=== PATIENT | female | born 1965 | race Caucasian/White ===

== ENCOUNTER → 2017-07-30 17:51 | Outpatient (CLI) | payer OTHER, SELFPAY ==
--- NOTE | 2017-07-30 18:00 | MRI_ITS ---
MR Spine Cervical W/O Contrast INDICATION: Right shoulder pain following neck injury COMPARISON: None TECHNIQUE: Multiplanar multisequence MRI examination of the cervical spine without contrast FINDINGS: The cervical spine is straightened, likely positional. Height of the vertebral bodies is preserved. Bone marrow signal is normal. Positioning of the cerebellar tonsils is normal. The cervical cord is normal in course, caliber, and signal intensity. There is mild flattening of the cord at the C5-6 and C6-7 levels without evidence of signal change. C2-3 level and C3-4 level unremarkable. C4-5 level demonstrates left predominant uncovertebral joint hypertrophy with left neural foraminal stenosis. Spinal canal and right neuroforamen are patent. C5-6 level demonstrates degenerative disc disease with circumferential disc osteophyte formation and uncovertebral joint hypertrophy. Broad-based posterior disc protrusion is present and disc osteophytes are seen extending into the neuroforamina bilaterally. Findings result in moderate spinal canal stenosis and bilateral neuroforaminal stenosis, left worse than right. Residual AP diameter of the dural sac is 7 mm. The cord is mildly flattened. C6-7 level demonstrates degenerative disc disease with a focal left paracentral disc protrusion and bilateral uncovertebral joint hypertrophy. Findings result in mild spinal canal and bilateral neuroforaminal stenosis. Residual AP diameter of the dural sac is 8 mm. C7-T1 level is unremarkable. MRI/Spine Cervical (Routine) IMPRESSION: Left predominant facet arthritic changes with neuroforaminal narrowing at C4-5, C5-6, and C6-7. Degenerative disc disease at C5-6 and C6-7 with posterior disc protrusions and spinal canal narrowing as detailed above. at [id number] Reported and signed by: Gaby Elaine MD Electronically Signed: Gaby Elaine MD at 22:41 EST Tel , Service support ,
== END ==
PROVIDERS: Family Provider Family Medicine; PCP Family Medicine; Visit Provider Anesthesiology Pain Medicine
DX: S40.011A Contusion of right shoulder, initial encounter (principal); X58.XXXA Exposure to other specified factors, initial encounter
CPT/HCPCS: 72141

== ENCOUNTER 2017-11-27 09:00 | Outpatient (RCR) | payer OTHER, SELFPAY ==
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
--- NOTE | 2017-11-27 09:00 | DT_ITS ---
This patient was seen during an EMR downtime November 25, 2017 - December 02, 2017. This patient may have a combination of paper and electronic documentation or all paper documentation. All documentation is viewable within the e-chart portion of [facility] for each patient visit.
--- NOTE | 2017-12-02 21:15 | HP.PTDCSUM ---
HP - PT D/C Summary It has been my pleasure to treat LAURA ROMERO under orders from Tim Whaley MD, for the diagnosis of SPINAL STENOSIS OF CERVICAL REGION C5-6-7 for a total of 8 visit(s). Discharge Date: 12/02/17 Please see the following information for a summary of their discharge status. - Subjective Subjective: Symptosm are about the same TOLENTINO and symptoms affecct ADL'S and job demands and houswork tasks. - Pain Bilateral Neck Pain Intensity (Out of 10): 5 - Overall Improvement % Improvement: 40 - Objective Objective/Function: POSTURE: mild foward head round shoulders. CERVICAL ROM: mod loss all planes with pain. MMT: 4/5 except shoulders 4-/5. NEURO : inact reflexes C5-6-7 07/27. PALAPTION: tender oa /aa - Goals Goal 1:: Independant with HEP Goal Progress: Progressing Goal 2:: Independant with posture for ADL'S Goal Progress: Progressing Goal 3:: Patient to decrease cervical pain and occiputal pain by 50% or greater to improve function with ADL'S Goal Progress: Progressing Goal 4:: Patient to improve cervical ROM for function of recovery with min limiations Goal Progress: Progressing Goal 5:: Patient be able to perform ADL'S anfd housework tasks with min li mations with less pain Goal Progress: Progressing Goal 6:: Patient be d/c to prophalaxis Goal Progress: Progressing - Plan Plan: D/C TO RTD - D/C Information If there are questions or concerns regarding this patient's physical therapy, please feel free to call me at [phone]. Thank you for the referral of this patient. Sincerely, Elder Seo, PT,
== END 2017-11-27 19:00 | disposition home or self-care (01) ==
LOC: PT 09:00
PROVIDERS: Family Provider Family Medicine; PCP Family Medicine; Visit Provider Orthopaedic Surgery Orthopaedic Surgery of the Spine
DX: M48.02 Spinal stenosis, cervical region (principal)
CPT/HCPCS: 97012; 97035; 97110; 97140; 97162

== ENCOUNTER → 2018-02-04 10:33 | Outpatient (CLI) | payer OTHER, SELFPAY | PROVIDERS: Family Provider Family Medicine; PCP Family Medicine; Visit Provider Orthopaedic Surgery | DX: M25.512 Pain in left shoulder (principal) | CPT/HCPCS: 73030 ==

== ENCOUNTER → 2018-05-02 12:35 | Outpatient (CLI) | payer OTHER, SELFPAY ==
--- NOTE | 2018-05-02 12:36 | MRI_ITS ---
STUDY: MRI LEFT SHOULDER REASON FOR EXAM: Female, 52 years old. Left shoulder pain status post pulling injury 8 months ago TECHNIQUE: Standardized fat and water weighted pulse sequences were obtained in all 3 orthogonal planes. COMPARISON: X-ray February 04, 2018 FINDINGS: There is tendinosis of the supraspinatus with high-grade tear at the insertion, series 4 image . There is infraspinatus tendinosis with tendon thickening, but without a demonstrated tendon tear. Normal subscapularis tendon. Normal teres minor tendon. Normal supraspinatus muscle. Normal infraspinatus muscle. Normal subscapularis muscle. Normal teres minor muscle. Normal glenohumeral articulation. Normal humeral head and visualized proximal humerus. Normal biceps labral complex. Normal intracapsular long biceps tendon. Normal labrum. Normal capsulo- ligamentous complex. Normal rotator interval. There is mild osteoarthritis of the acromioclavicular articulation. There is a Type II morphology (curved) acromion, with a neutral orientation. There is minimal fluid distention of the subacromial bursa, consistent with mild subacromial-subdeltoid bursitis. Normal visualized coracohumeral and coracoacromial ligaments. Normal quadrilateral space. Normal axillary space. Normal deltoid muscle. Normal trapezius muscle. MRI/Upper Ext Joint Only(Routine) IMPRESSION: High-grade rotator cuff tear of the supraspinatus tendon. Electronically Signed: Dae Suarez MD at 10:51 EST , Service support ,
== END ==
PROVIDERS: Family Provider Family Medicine; PCP Family Medicine; Referring Provider Orthopaedic Surgery; Visit Provider Orthopaedic Surgery
DX: M75.102 Unspecified rotator cuff tear or rupture of left shoulder, not specified as traumatic (principal)
CPT/HCPCS: 73221

== ENCOUNTER 2018-06-04 11:18 | Day surgery (SDC) | payer OTHER, SELFPAY ==
--- NOTE | 2018-06-02 16:15 | EKG12_ITS ---
Test Reason : PRE-OP Blood Pressure : / mmHG Vent. Rate : 098 BPM Atrial Rate : 098 BPM P-R Int : 146 ms QRS Dur : 080 ms QT Int : 370 ms P-R-T Axes : 066 022 009 degrees QTc Int : 472 ms Normal sinus rhythm Normal ECG Confirmed by ALENA MCKENZIE, TONIE ([id number]), editorial project manager JEAN COULTER ([id number]) on 06/03/2018 8:47:40 AM Referred By: Mónica Garcia Confirmed By:TONIE CARVAJAL MD
[2018-06-02 17:06] LABS: Hematocrit 41.1 % (37-47); Hemoglobin 13.5 g/dl (12.0-15.0); Mean Corp Hgb Conc 32.8 g/gl (32-36); Mean Corpuscular Hgb 29.2 pg (27.0-32.0); Mean Platelet Vol. 9.8 fl (6.2-12.0); Platelet Count 379 K/mm3 (150-450); RBC Distribution Width CV 12.9 % (11.6-14.6); RBC Distribution Width SD 41.2 fl (35.1-43.9); Red Blood Count 4.62 M/mm3 (4.2-5.4); White Blood Count 10.3 K/mm3 (4.4-11.0)
[2018-06-02 17:07] LABS: Scan Indicated on CBC? Y/N NO
[2018-06-02 17:30] LABS: Anion Gap 8 (5-15); BUN 15 mg/dL (7-18); BUN/Creat Ratio 18.1 RATIO (10-20); Calcium,Total 8.8 mg/dL (8.5-10.1); Chloride 102 mmol/L (98-107); Creatinine, Serum 0.83 mg/dL (0.55-1.02); EST Glomerular Filtration Rate 77 mL/min (>60); Est Glom Filt Rate - Afr Amer 93 mL/min (>60); Glucose 122 mg/dL (74-106); Sodium Level 140 mmol/L (136-145); Thyroid Stim Hormone (TSH) 0.89 uIU/mL (0.358-3.74)
[2018-06-04] VITALS (9 sets, daily range): BP systolic 132–151; BP diastolic 68–96; PULSE 96–110; RESP 16–22; TEMP 36.2–37.4; O2SAT 93–97; BMI 50.2
--- NOTE | 2018-06-04 15:58 | DCINST_ITS ---
Discharge Diet: No Restrictions - may remove dressings in 4 days and apply bandaids to incision sites and may get incision wet at that time, follow up in 2 weeks, call with concerns, pendulums as tolerated, may flex elbow and use hand as tolerated Discharge Activity: May Not Drive May shower in (days): 1 Ice area for (Minutes): 20 - Every hour while awake. Weight Bearing Status: Weight bearing as tolerated Keep extremity elevated above heart level: Operative Extremity Call your doctor if your incision/area has: Continuous Slow Oozing, Sudden Increased Bleeding, Increased Pain/ Swelling, Increased Redness, Foul Smelling Discharge Call your doctor if you observe: Fever of 101 or Higher, Coldness, Increased Pain, Numbness or Tingling, Change in Color, Calf discomfort Allergies/Adverse Reactions: Allergies DANIEL Inhibitors Adverse Reaction (Verified 06/02/18 10:26) Other COUGH Medications to take at Discharge Citalopram [Celexa] 40 mg PO DAILY 04/27/14 Levothyroxine [Synthroid] 175 mcg PO DAILY 04/27/14 Spironolactone [Aldactone] 25 mg PO DAILY 04/27/14 tapentadol 50 mg tablet 50 mg PO Q6H PRN 04/22/18 Ibuprofen 200 mg PO PRN PRN 06/02/18 Duloxetine Hcl [Cymbalta] 30 mg PO DAILY 06/04/18 Hydrocodone Bitart/Apap 5-325 [[place] 5MG-325MG] 1 - 2 tablet PO Q6H PRN PRN 5 Days #40 tablet 06/04/18 Zolpidem Tartrate [Ambien (Generic)] 5 mg PO QHS PRN PRN #14 tablet 06/04/18 The following prescriptions were given: Hydrocodone Bitart/Apap 5-325 [[place] 5MG-325MG] 1 - 2 tablet PO Q6H PRN PRN 5 Days #40 tablet PRN Reason: Pain Zolpidem Tartrate [Ambien (Generic)] 5 mg PO QHS PRN PRN #14 tablet PRN Reason: Insomnia Orders to be completed after discharge: 12 Lead EKG [[facility]S] Time Frame: 06/02/18, Location: None Selected Basic Metabolic Profile (BMP) Time Frame: 06/02/18, Location: Laboratory CBC-Complete Blood Cnt No Diff Time Frame: 06/02/18, Location: Laboratory Thyroid Stim Hormone (TSH) Time Frame: 06/02/18, Location: Laboratory Primary Care Physician: Humera Rowland DO [Primary Care Provider] - Test Results: Test results from this visit will be discussed in further detail at your follow- up appointment, if applicable. Please Follow Up With: Mónica Garcia DO - [phone]
--- NOTE | 2018-06-04 15:58 | PCM.OPRPT ---
Report of Operation Date of Procedure: 06/04/18 Pre-Operative Diagnosis: left shoulder rotator cuff tear, biceps tendinosis, subacromial impingement syndrome Post-Operative Diagnosis: same Surgery/Procedure Performed:: sals, rc repair, biceps tenotomy, sad/acromioplasty supervisor inspecting: Gonzalez Franco Type of Anesthesia:: General Anesthesiologist: Abraham Quiñonez Estimated Blood Loss (mL): minimal Fluids Replaced: 500cc lr Description of Procedure: Preop note Patient is a 52-year-old female with continued left shoulder pain despite conservative treatment. Patient has pain and weakness with overhead movement. Patient had MRI that confirmed a high-grade tear biceps tendinosis and bursitis. Patient is failed conservative treatment and like to proceed with left shoulder arthroscopy repair is indicated. Risks benefits and alternatives surgery discussed with patient. Risks include but not limited to blood loss, blood clot, infection, nerve injury, loss of life and loss of limb. Patient is aware less patient like to proceed with left shoulder arthroscopy repair is again indicated. Operative note Patient seen and examined preoperative holding area. Left shoulder was marked. Patient brought to the operating room placed supine on the operating table. Sign, anesthesia, antibiotics are Mr. Left arm was prepped and draped in usual sterile fashion after beachchair positioning was maintained. [place] through beachchair positioning we did recheck her blood pressure which was stable throughout. All bony prominences well-padded SCDs placed on her bilateral lower extremity. We marked out our bony landmarks for portal placement timeout was performed. We insufflated the joint from the posterior aspect of the posterior portal. We got good return. We created a posterior portal with an 11 blade. We will able to visualize the glenohumeral joint. She has some undersurface tearing of the rotator cuff there are no loose bodies in the inferior recess her subscap was intact the biceps was torn off of its insertion at the labral junction as well as some red streaking in the interval not entered tubercle notch after an anterior portal was created and we able to bring the tendon into the joint to further evaluate it. We then truncated the biceps at its insertion and then used a shaver to debride back some unstable labral pieces as well as some unstable labral pieces that were more posterior as well. We then moved to the we did also debrided the undersurface of the rotator cuff and placed a 18-gauge spinal needle to martha where she had some fraying and some thinner tissue on the articular surface. We then moved to the bursal side. Created our lateral portal under direct visualization. We difficult time seeing as she has some of the bursa. We the combination of shaver and an ablator to resect back or thickened bursa. We able to visualize the cuff and a little bit more detail. She had a hook of her acromion which was gently debrided back and co-planed with a bur. We then able to again visualize the rotator cuff at the site of where her spinal needle was there was some almost more than 50% degenerative fraying coincide with about the 30% of the articular surface we completed the 20% remaining tear with a shaver which was gently debrided back as the tendon was quite friable. We then placed a fiber tape through the tear is us a very small tear and placed into a swivel lock laterally. We had good reduction and good footprint coverage at that point. We then irrigated the shoulder with copious muscle sterile saline and debrided any further bursa that we found especially in the posterior recess coagulated all bleeders. The shoulder was irrigated copious muscle sterile saline. Portals were closed with interrupted 4-0 nylon stitches and a sterile dressings and a sling was applied. Patient tolerated procedure well there are no comp occasions transferred to recovery room in stable condition. Postoperative note Pharmacy has prescription this We will give patient pictures in 2 weeks May remove sling to do pendulums only may move the elbow and hand as tolerated Call with increased pain numbness tingling or further his wrist issues arise Follow-up in 2 weeks with Heraclio WATT This note was generated with [employer] dictation software. It may contain incorrect words, spelling, and punctuation that were not noted in checking the note before signing.
[2018-06-04] MEDS: Cefazolin 2 GM in 0.9% Normal Saline 100 ML IV (16:11)
[2018-06-04] MEDS: Bupiv/Epi 0.5% Mpf 30 ML Vial (17:16)
[2018-06-04] MEDS: Mupirocin Ointment 22gm Tube 1 APPLIC (17:20)
[2018-06-04] MEDS: HYDROcodone Bitartrate/Apap 5/325 Tablet PO (20:00)
--- OUTSIDE RECORDS SUMMARY | 2018-07-21 14:11 | XMS RPT_ITS ---
:1965 Author Organization [facility] Address [address] [place] [address] Phone Care Team Providers Name Role Phone Judd MCKENZIE, Tim V Unavailable Reason for Visit Reason For Visit Description Start Date New - 1st visit with practice Preliminary reason for visit data, not yet signed by the author as of neck pain Preliminary reason for visit data, not yet signed by the author as of Chief Complaint Chief Complaint Description Start Date neck pain Preliminary chief complaint data, not yet signed by the author as of Instructions Instruction Description Start Date Patient advised to follow-up with Primary Care Physician for BMI management. Plan of Care Type Date Detail Appointment 09:00 AM Tim Whaley MD, [address], [place], [address], Pending order XR CERVICAL 2-3 VWS Medications Medication Instructions Start Stop Generic Name NDC Provider Date Date METHYLPREDNISOLONE 4 Use as 2018/ METHYLPREDNISOLONE 31127093547 Tim V MG TBPK directed on 10/16 10/22 Judd lozada MD NUCYNTA TABS 1 tablet twice TAPENTADOL HCL TABS 52599205075 Tim V daily 10/16 Judd MCKENZIE CELEXA TABS 1 tablet once CITALOPRAM [id number] Tim V daily 10/16 HYDROBROMIDE TABS Judd MCKENZIE ALDACTONE TABS 1 tablet once SPIRONOLACTONE TABS [id number] Tim V daily 10/16 Judd MCKENZIE SYNTHROID TABS 1 tablet once 2018/0 LEVOTHYROXINE [id number] Tim V daily 10/16 SODIUM TABS Judd MCKENZIE Conditions or Problems Problem Problem Onset Status Entry Provider Comment Standard Annotate Name Code Date Date Description Spinal 79605017 Active Tim V Spinal stenosis (SNOMED CT) / Judd MCKENZIE stenosis in of cervical cervical region region C5-6-7 Body mass 006454789 Active Tim V Body mass index (SNOMED CT) / Judd MCKENZIE index 40+ - (BMI) severely 45.0-49.9, obese adult Morbid 688640987 Active Tim V Body mass (severe) (SNOMED CT) / Judd MCKENZIE index 40+ - obesity severely due to obese excess calories Allergies, Adverse Reactions, Alerts Observed no known allergies at Social History Concept Description Observation Name Observation Value Units Start Date Alcohol use ETOH USE No Preliminary social history data, not yet signed by the author as of Details of drug DRUG USE No misuse behavior Preliminary social history data, not yet signed by the author as of Employment 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 Preliminary social history data, not yet signed by the author as of Never smoker SMOK STATUS never smoker Preliminary social history data, not yet signed by the author as of Vital Signs Date Name Value Unit Description BMI (Body Mass 49.60 kg/m2 Body Mass Index Index) [Ratio] Preliminary vital sign data, not yet signed by the author as of BP Diastolic 89 mm[Hg] blood pressure, diastolic Preliminary vital sign data, not yet signed by the author as of BP Systolic 129 mm[Hg] blood pressure, systolic Preliminary vital sign data, not yet signed by the author as of Heart Rate 80 /min pulse rate E&M Preliminary vital sign data, not yet signed by the author as of Height 65 [in_us] height E&M Preliminary vital sign data, not yet signed by the author as of Height 165 cm height in centimeters E&M Preliminary vital sign data, not yet signed by the author as of Weight Measured 297 [lb_av] weight E&M Preliminary vital sign data, not yet signed by the author as of Weight Measured 135 kg weight in kilograms E&M Preliminary vital sign data, not yet signed by the author as of Results Date Name Value Unit Range Flag Description Office Visit: New - 1st visit with practice, Rm: cast room MEDS REVIEW Done Documentation of current medications (procedure) Preliminary observation data, not yet signed by the author as of SMOK STATUS never smoker Tobacco smoking status NHIS Preliminary observation data, not yet signed by the author as of Preliminary observation data, not yet signed by the author as of MRI HX of the Cervical on MRI (magnetic 07/30/2017 at [facility]) history Hospital Preliminary observation data, not yet signed by the author as of XRAY HX of the Cervical on xray history 05/30/2016 at [facility] Preliminary observation data, not yet signed by the author as of Clinical Summary: [facility] account number Procedures Code Procedure Name Date Entry Date CPT-86813 Physical Therapy Medications Administered No information available. Immunizations No information available. Advance Directives There may be information available, but it has not been provided by the sender. Assessments There may be information available, but it has not been provided by the sender. Review of Systems There may be information available, but it has not been provided by the sender. Family History There may be information available, but it has not been provided by the sender. History of Past Illness There may be information available, but it has not been provided by the sender. History of Present Illness There may be information available, but it has not been provided by the sender.
--- OUTSIDE RECORDS SUMMARY | 2018-07-21 14:12 | XMS RPT_ITS ---
:1965 Author Organization OHIP Support Name Relationship Address Phone [employer] Unavailable [address] + [place] [address] NICK, AVEL Unavailable [address] + [place] [address] NICK, JULITA Unavailable [address] + [place] [address] [employer] Unavailable [address] + [place] [address] NICK, AVEL Unavailable [address] + [place] [address] NICK, JULITA Unavailable [address] + [place] [address] [employer] Unavailable [address] + [place] [address] NICK, AVEL Unavailable [address] + [place] [address] NICK, JULITA Unavailable [address] + [place] [address] [employer] Unavailable [address] + [place] [address] NICK, AVEL Unavailable [address] + [place] [address] NICK, JULITA Unavailable [address] + [place] [address] [employer] Unavailable [address] + [place] [address] NICK, AVEL Unavailable [address] + [place] [address] NICK, JULITA Unavailable [address] + [place] [address] [employer] Unavailable [address] + [place] [address] NICK, AVEL Unavailable [address] + [place] [address] NICK, JULITA Unavailable [address] + [place] [address] [employer] Unavailable [address] + [place] [address] NICK AVEL Unavailable [address] + [place] [address] [employer] Unavailable [address] + [place] [address] NICK AVEL Unavailable [address] + [place] [address] [employer] Unavailable [address] + [place] [address] NICK, AVEL Unavailable [address] + [place] [address] [employer] Unavailable [address] + [place] [address] NICK, AVEL Unavailable [address] + [place] [address] [employer] Unavailable [address] + [place] [address] NICK, AVEL Unavailable [address] + [place] [address] [employer] Unavailable [address] + [place] [address] NICK, AVEL Unavailable [address] + [place] [address] [employer] Unavailable [address] + [place] [address] NICK, AVEL Unavailable [address] + [place] [address] [employer] Unavailable [address] + [place] [address] NICK, AVEL Unavailable [address] [facility] + [place] [address] ANNETTE ROMERO Unavailable [address] [facility] + [place] [address] Care Team Providers Name Role Phone Mónica Garcia Attending Unavailable Chicorelli, Mónica Referring Unavailable Malys, Humera Primary Care Unavailable Abraham Quiñonez Consulting Unavailable Chicorelli, Mónica Consulting Unavailable Olegario Dai Attending Unavailable Chicorelli, Mónica Referring Unavailable BasaliByron Attending Unavailable Malys, Humera Primary Care Unavailable Chicorelli, Mónica Attending Unavailable Malys, Humera Referring Unavailable Chicorelli, Mónica Attending Unavailable Malys, Humera Primary Care Unavailable Gonzalez Franco Attending Unavailable Malys, Humera Referring Unavailable TALIWAL, TIM Attending Unavailable TALIWAL, TIM Referring Unavailable Malys, Humera Primary Care Unavailable Chicorelli, Mónica Attending Unavailable Malys, Humera Referring Unavailable Malys, Humera Primary Care Unavailable Chicorelli, Mónica Attending Unavailable Malys, Humera Primary Care Unavailable Chicorelli, Mónica Attending Unavailable Malys, Humera Referring Unavailable Chicorelli, Mónica Attending Unavailable Chicorelli, Mónica Referring Unavailable Malys, Humera Primary Care Unavailable Gonzalez Franco Attending Unavailable Malys, Humera Referring Unavailable Chicorelli, Mónica Attending Unavailable Chicorelli, Mónica Referring Unavailable Malys, Humera Primary Care Unavailable Abraham Quiñonez Consulting Unavailable JolliffSteffanie Attending Unavailable Malys, Humera Primary Care Unavailable PROBLEMS PROBLEMS DATE TYPE CONDITION / CODE ATTENDING STATUS SOURCE 06/04/2018 Unknown G89.18 - Other acute Chicorelli, Active [place] postprocedural pain [facility] / G89.18(ICD-10) Hospital Repository 06/06/2018 Unknown Z01.810 - Encounter Olegario Dai Active [place] for [facility]procedural [facility] examination / Repository Z01.810(ICD-10) 04/22/2018 Unknown M75.102 - Chicorelli, Active [place] Unspecified rotator [facility] cuff tear or rupture Hospital of left shoulder, Repository not specified as traumatic / M75.102(ICD-10) 02/04/2018 Unknown M25.512 - Pain in Chicorelli, Active [place] left shoulder / Mónica [facility] M25.512(ICD-10) Hospital Repository 12/12/2017 Unknown M48.02 - Spinal TALIWAL, TIM Active [place] stenosis, cervical Community region / Hospital M48.02(ICD-10) Repository 01/03/2017 Unknown CONTUSION OF Steffanie Pugh Active [place] UNSPECIFIED Community SHOULDER, SUBSEQUENT Hospital ENCOUNTER / Repository S40.019D(ICD-10) PROCEDURES PROCEDURES No Procedure Records FoundRESULTS RESULTS ORTHOPEDIC VISIT Observed: 07/14/2018 Status: F Source: [place] REPORT 11:36 AM [facility] REPOSITORY [facility] Sports [facility] [address] [place] [address] OFFICE VISIT Date of Service: 07/14/18 MR#: [id number] Acct: [id number] Name: LAURA ROMERO Rep #: [id number] : 1965 Provider: ALYSA Franco Age/Sex: 53/F Location[place] [facility] Status: Signed Intake Vital Signs07/14/18 Body Mass Index (BMI) 50.2 Intake Visit Reasons: LEFT SHOULDER Allergies DANIEL Inhibitors Adverse Reaction (Verified 06/02/18 10:26) Other Medications Citalopram [Celexa] 40 mg PO DAILY 04/27/14 [History Confirmed 06/02/18] Levothyroxine [Synthroid] 175 mcg PO DAILY 04/27/14 [History Confirmed 06/04/18] Spironolactone [Aldactone] 25 mg PO DAILY 04/27/14 [History Confirmed 06/02/18] tapentadol 50 mg tablet 50 mg PO Q6H PRN 04/22/18 [History Confirmed 06/02/18] Ibuprofen 200 mg PO PRN PRN 06/02/18 [History Confirmed 06/02/18] Duloxetine Hcl [Cymbalta] 30 mg PO DAILY 06/04/18 [History Confirmed 06/04/18] Zolpidem Tartrate [Ambien (Generic)] 5 mg PO QHS PRN PRN #14 tab 06/04/18 [Rx] tramadol 50 mg tablet 50 mg PO Q8H PRN #30 tab 07/11/18 [Rx] PFSH Social History Smoking Status: Former smoker HPI LEFT SHOULDER: Details: LAURA ROMERO is a 53 year old F here today for f/u 06/04/18 left shoulder RTC repair with tenotomy. She has been compliant with her sling and PT, though she does state she hates going. She is not doing an HEP because she said she was not instructed yet. She has full elbow rom without pain. Her complaints of pain is when she reaches out, an example given was reaching for the faucet, but she is using pain as her guide. Denies numbness, tingling or other associated symptoms. Ortho Exam Left Shoulder Skin/Wound: No ecchymosis, Yes healed Contralateral Normal: Yes Testing: No AROM-Forward Elevation 0-180, No AROM-External Rotation at side 0-60, No PROM-Forward Elevation 0-180, No PROM-External Rotation at side 0-60 SHOULDER: Today in the office patient has no evident abnormalities on inspection of the shoulder. Her incision sites have healed well without any erythema, discharge, inflammation or signs of infection. She has very minimal scarring at the site as well. Patient does not have any tenderness on palpation of the shoulder. Patient is obviously limited with her active range of motion. Passively I am able to get patient roughly 90 degrees of forward elevation and 90 degrees of abduction which is where she first begins to feel some discomfort and therefore stop. Assessment AND Plan Problems 1. Status post rotator cuff repair Z98.890 2. Orthopedic aftercare Z47.89 Plan At this time patient appears to be doing very well 6 weeks post left supraspinatus tendon repair. Her incision sites have healed well without any signs of inflammation or infection. She has no localized or generalized swelling of the shoulder. Patient is progressing through physical therapy primarily focused on passive range of motion with some minor active motion. She has started to slowly wean out of the brace and at 6 weeks we will continue to do so at this time. She is to continue to follow guidance of physical therapy especially with her home exercise program. She can continue to ice and take anti-inflammatories as needed for inflammation and pain. At this time patient is not able to return to work with her limited motion that she has. We discussed that we will recheck in 6 weeks which at 3 months are hoping to see almost complete full range of motion but will be lacking strength at that time. Patient is to notify and return to the office if she has any increased pains, increasing swelling, new injuries, or any other concerns or complaints. All questions were answered this time from patient. This note was generated with octoScope dictation software. It may contain incorrect words, spelling, and punctuation that were not noted in checking the note before signing. Coding Level of Care Code Global Post Op Diagnoses Status post rotator cuff repair Z98.890 Orthopedic aftercare Z47.89 07/14/18 1136 <Electronically signed by Gonzalez WATT> Date Gonzalez WATT Cosigner Signature: Date (if applicable) CC: INITAL EVALUATION (1) Observed: 06/30/2018 Status: F Source: [place] - PT 3:17 PM [facility] REPOSITORY [facility] Physical [facility] [address] [place] [address] [address] [place] [address] / REHABILITATION SERVICES INITIAL EVALUATION MR#: [id number] Acct: [id number] Name: LAURA ROMERO Rep #: [id number] : 1965 53 From: Avery Sylvester PT, ATC Referring Dr.: Mónica Garcia DO Status: REG RCR Insurance: [facility] [place] [id number] SELF PAY INSURANCE Patient's Visit Information LAURA ROMERO is a 53 year old F referred to Physical Therapy by Mónica Garcia DO with a diagnosis of L rot cuff repair. Date of Evaluation: 06/30/18 Physical Therapist: Avery Sylvester PT, ATC - Visit Plan Frequency: 2-3x /Week Duration: 6 Weeks Plan: Follow Rot cuff protocal. CP for pain - Subjective Findings: DOS: 06/04/18. Pt had a L shoulder rotator cuff repair and biceps tenodesis. Pt reports she injured her shoulder by trying to throw a bag that was heavy. Pt reports she immediately knew she injured her shoulder, but didn't want to go through the surgery again as she had R rot cuff repair 4 years ago. Pt reports this surgery was much more painful than her R shoulder. Pt reports she is glad she had the surgery done now. Pt reports the severe pain she had prior to the surgery is gone now. Intermittent sleep difficulty secondary to pain. Pt is R hand dominant. Pt works for the [employer]. 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 1/10 at rest, 6/10 at worst - Pain L shoulder Pain Intensity (Out of 10): 1 Pain Intensity Range: 6 - Objective Neuro: B UE sensation is WNL to light touch. R biceps reflex= 2/3. Observation: Incisions are fully healed with no signs of infection. ROM: L shoulder flex and abd= 90 degrees. R shoulder flex= 160, abd= 128 degrees. MMT: R shoulder 5/5 throughout. L shoulder NT - Goals Goal 1:: Decrease L shoulder pain x 50% to aid with sleep Goal Time Frame: 4-6 Weeks Goal 2:: Increase L shoulder flex and abd ROM x40 degrees to aid with overhead lifting Goal Time Frame: 4-6 Weeks Goal 3:: Increase L shoulder strength x 1 grade to aid with IADL's Goal Time Frame: 4-6 Weeks Goal 4:: I with HEP Goal Time Frame: 4-6 Weeks - Rehabilitation Potential Physical Therapy Diagnosis: L shoulder pain, weakness, and limited ROM secondary to L shoulder rot cuff repair Rehabilitation Potential: Good - Anticipated Interventions Patient/Client Instruction: Educate patient on: Condition, Plan of Care For the Purpose of:: To improve self management Therapeutic Exercise to Include: Strength training, Endurance training, Flexibilty training, Passive ROM, Active ROM, Scapular Strength/Stabilization For the Purpose of:: To decrease pain, To increase ROM, To improve muscle performance and motor function Cryotherapy (ice pack, ice massage): Yes For the Purpose of:: To decrease pain Thank you for the opportunity to evaluate your patient. For Medicare and Medicare HMO plans, please review the plan of care and approve it. It will need to be FAXED BACK to us at [phone] for Medicare purposes. For Medicare only, by signing this I certify the plan of care. Please let me know if there are questions or concerns regarding this plan of care. Physician Signature: Date: <Electronically signed by Avery Sylvester PT, ATC> 06/30/18 1517 CC: Mónica Garcia DO; Humera Rowland DO [facility] Signed ORTHOPEDIC VISIT Observed: 06/19/2018 Status: F Source: [place] REPORT 1:03 PM [facility] REPOSITORY [facility] Orthopa[facility]ics AND Sports Medicine [address] [place] [address] OFFICE VISIT Date of Service: 06/19/18 MR#: [id number] Acct: [id number] Name: LAURA ROMERO [place] Rep #: [id number] : 1965 Provider: Mónica Garcia DO Age/Sex: 52/F Location[place] [facility] Status: Signed Intake Vital Signs06/19/18 Body Mass Index (BMI) 50.2 Intake Visit Reasons: LEFT SHOULDER Is patient in pain?: Yes Pain scale (1-10): 3 Allergies DANIEL Inhibitors Adverse Reaction (Verified 06/02/18 10:26) Other Medications Citalopram [Celexa] 40 mg PO DAILY 04/27/14 [History Confirmed 06/02/18] Levothyroxine [Synthroid] 175 mcg PO DAILY 04/27/14 [History Confirmed 06/04/18] Spironolactone [Aldactone] 25 mg PO DAILY 04/27/14 [History Confirmed 06/02/18] tapentadol 50 mg tablet 50 mg PO Q6H PRN 04/22/18 [History Confirmed 06/02/18] Ibuprofen 200 mg PO PRN PRN 06/02/18 [History Confirmed 06/02/18] Duloxetine Hcl [Cymbalta] 30 mg PO DAILY 06/04/18 [History Confirmed 06/04/18] Zolpidem Tartrate [Ambien (Generic)] 5 mg PO QHS PRN PRN #14 tab 06/04/18 [Rx] tramadol 50 mg tablet 50 mg PO Q8H PRN #30 tab 06/19/18 [Rx Confirmed 06/19/18] PFSH Social History Smoking Status: Former smoker HPI LEFT SHOULDER: Details: LAURA ROMERO is a 52 year old F here today for f/u 06/04/18 left shoulder scope. She is compliant with her sling, removing when at rest in a chair and for showers. She is out of her pain medication but states she was using one at night and midday still. She has no signs of infection today and her incisions are healing well. Denies numbness, tingling or other associated symptoms. She has good rom at the elbow wrist and fingers. Ortho Exam Left Shoulder Skin/Wound: Yes healing SHOULDER: incision cdi, Assessment AND Plan 1. Orthopedic aftercare Z47.89 Plan PT rx given f/u 4 weeks with joshua wayt or sooner if issues arise tramadol escribed All questions answered. Patient in agreement of plan.Follow up in 4 weeks, or sooner if pain, swelling, numbness or associated symptoms, or concerns develop. Personally reviewed the surgical images if available, the surgery procedure and reviewed the post op care instructions. Monitor for signs of infection, redness, warmth, swelling in excess, drainage, opening of incision site/sites, and/or fever. Plan Detail Other Medications New: tramadol take 1 tab every 8 hours as needed for pain50 mg PO Q8H PRN 30 tabs 0RF pain , stop all other pain meds Coding Level of Care Code Global Post Op Diagnoses Orthopedic aftercare Z47.89 06/19/18 1303 <Electronically signed by Mónica Garcia DO> Date Mónica Xiongignrobert Signature: Date (if applicable) CC: OPERATIVE REPORT Observed: 06/04/2018 Status: F Source: [place] 5:31 PM [facility] REPOSITORY [facility] Medical Records Department [address] [place] [address] Operative Report 06/04/18 1558 MR#: [id number] Acct: [id number] Name: LAURA ROMERO Rep #: [id number] : 1965 52 From: Mónica Garcia DO PCP: Humera Rowland DO Status: REG SDC Y Location: [place] [address] Report of Operation Date of Procedure: 06/04/18 Pre-Operative Diagnosis: left shoulder rotator cuff tear, biceps tendinosis, subacromial impingement syndrome Post-Operative Diagnosis: same Surgery/Procedure Performed:: sals, rc repair, biceps tenotomy, sad/acromioplasty beef grinder: Gonzalez Franco Type of Anesthesia:: General Anesthesiologist: Abraham Quiñonez Estimated Blood Loss (mL): minimal Fluids Replaced: 500cc lr Description of Procedure: Preop note Patient is a 52-year-old female with continued left shoulder pain despite conservative treatment. Patient has pain and weakness with overhead movement. Patient had MRI that confirmed a high-grade tear biceps tendinosis and bursitis. Patient is failed conservative treatment and like to proceed with left shoulder arthroscopy repair is indicated. Risks benefits and alternatives surgery discussed with patient. Risks include but not limited to blood loss, blood clot, infection, nerve injury, loss of life and loss of limb. Patient is aware less patient like to proceed with left shoulder arthroscopy repair is again indicated. Operative note Patient seen and examined preoperative holding area. Left shoulder was marked. Patient brought to the operating room placed supine on the operating table. Sign, anesthesia, antibiotics are Mr. Left arm was prepped and draped in usual sterile fashion after beachchair positioning was maintained. Mcc through beachchair positioning we did recheck her blood pressure which was stable throughout. All bony prominences well-padded SCDs placed on her bilateral lower extremity. We marked out our bony landmarks for portal placement timeout was performed. We insufflated the joint from the posterior aspect of the posterior portal. We got good return. We created a posterior portal with an 11 blade. We will able to visualize the glenohumeral joint. She has some undersurface tearing of the rotator cuff there are no loose bodies in the inferior recess her subscap was intact the biceps was torn off of its insertion at the labral junction as well as some red streaking in the interval not entered tubercle notch after an anterior portal was created and we able to bring the tendon into the joint to further evaluate it. We then truncated the biceps at its insertion and then used a shaver to debride back some unstable labral pieces as well as some unstable labral pieces that were more posterior as well. We then moved to the we did also debrided the undersurface of the rotator cuff and placed a 18-gauge spinal needle to martha where she had some fraying and some thinner tissue on the articular surface. We then moved to the bursal side. Created our lateral portal under direct visualization. We difficult time seeing as she has some of the bursa. We the combination of shaver and an ablator to resect back or thickened bursa. We able to visualize the cuff and a little bit more detail. She had a hook of her acromion which was gently debrided back and co-planed with a bur. We then able to again visualize the rotator cuff at the site of where her spinal needle was there was some almost more than 50% degenerative fraying coincide with about the 30% of the articular surface we completed the 20% remaining tear with a shaver which was gently debrided back as the tendon was quite friable. We then placed a fiber tape through the tear is us a very small tear and placed into a swivel lock laterally. We had good reduction and good footprint coverage at that point. We then irrigated the shoulder with copious muscle sterile saline and debrided any further bursa that we found especially in the posterior recess coagulated all bleeders. The shoulder was irrigated copious muscle sterile saline. Portals were closed with interrupted 4-0 nylon stitches and a sterile dressings and a sling was applied. Patient tolerated procedure well there are no comp occasions transferred to recovery room in stable condition. Postoperative note Pharmacy has prescription this We will give patient pictures in 2 weeks May remove sling to do pendulums only may move the elbow and hand as tolerated Call with increased pain numbness tingling or further his wrist issues arise Follow-up in 2 weeks with Joshua WATT This note was generated with Bell[employer] software. It may contain incorrect words, spelling, and punctuation that were not noted in checking the note before signing. 06/04/18 1731 <Electronically signed by Mónica Garcia DO> Date Mónica Garcia DO CC: Mónica Garcia DO; Abraham Quiñonez MD; Humera Rowland DO Signed DISCHARGE INSTRUCTION Observed: 06/04/2018 Status: F Source: [place] 5:25 PM [facility] REPOSITORY [facility] Medical Records Department [address] [place] [address] Instructions for Home/Discharge Instructions 06/04/18 1557 MR#: [id number] Acct: [id number] Name: LAURA ROMERO Rep #: [id number] : 1965 52 From: Mónica Garcia DO PCP: Hmuera oRwland DO Status: REG SDC Discharge Diet: No Restrictions - may remove dressings in 4 days and apply bandaids to incision sites and may get incision wet at that time, follow up in 2 weeks, call with concerns, pendulums as tolerated, may flex elbow and use hand as tolerated Discharge Activity: May Not Drive May shower in (days): 1 Ice area for (Minutes): 20 - Every hour while awake. Weight Bearing Status: Weight bearing as tolerated Keep extremity elevated above heart level: Operative Extremity Call your doctor if your incision/area has: Continuous Slow Oozing, Sudden Increased Bleeding, Increased Pain/ Swelling, Increased Redness, Foul Smelling Discharge Call your doctor if you observe: Fever of 101 or Higher, Coldness, Increased Pain, Numbness or Tingling, Change in Color, Calf discomfort Allergies/Adverse Reactions: Allergies DANIEL Inhibitors Adverse Reaction (Verified 06/02/18 10:26) Other COUGH Medications to take at Discharge Citalopram [Celexa] 40 mg PO DAILY 04/27/14 Levothyroxine [Synthroid] 175 mcg PO DAILY 04/27/14 Spironolactone [Aldactone] 25 mg PO DAILY 04/27/14 tapentadol 50 mg tablet 50 mg PO Q6H PRN 04/22/18 Ibuprofen 200 mg PO PRN PRN 06/02/18 Duloxetine Hcl [Cymbalta] 30 mg PO DAILY 06/04/18 Hydrocodone Bitart/Apap 5-325 [Shattuck 5MG-325MG] 1 - 2 tablet PO Q6H PRN PRN 5 Days #40 tablet 06/04/18 Zolpidem Tartrate [Ambien (Generic)] 5 mg PO QHS PRN PRN #14 tablet 06/04/18 The following prescriptions were given: Hydrocodone Bitart/Apap 5-325 [Shattuck 5MG-325MG] 1 - 2 tablet PO Q6H PRN PRN 5 Days #40 tablet PRN Reason: Pain Zolpidem Tartrate [Ambien (Generic)] 5 mg PO QHS PRN PRN #14 tablet PRN Reason: Insomnia Orders to be completed after discharge: 12 Lead EKG [CVS] Time Frame: 06/02/18, Location: None Selected Basic Metabolic Profile (BMP) Time Frame: 06/02/18, Location: Laboratory CBC-Complete Blood Cnt No Diff Time Frame: 06/02/18, Location: Laboratory Thyroid Stim Hormone (TSH) Time Frame: 06/02/18, Location: Laboratory Primary Care Physician: Humera Rowland DO [Primary Care Provider] - Test Results: Test results from this visit will be discussed in further detail at your follow-up appointment, if applicable. Please Follow Up With: Mónica Garcia DO - [phone] 06/04/18 3115 <Electronically signed by Mónica Garcia DO> Date Mónica Garcia DO CC: Abraham Quiñonez MD; Humera Rowland DO 12 LEAD ELECTROCARDIOGRAM Observed: 06/03/2018 Status: F Source: [place] 8:47 AM [facility] REPOSITORY [facility] Cardiovascular Services [address] [place] [address] 12 Lead EKG 06/02/18 1624 MR#: [id number] Acct: [id number] Name: LAURA ROMERO Rep #: [id number] : 1965 52 From: Olegario Dai MD Attending Dr: Mónica Garcia DO Status: PRE SDC Ordering Dr: Mónica Garcia DO Date: 06/02/18 Location: [facility] [place] Sex: F C Admitted: Test Reason : PRE-OP Blood Pressure : / mmHG Vent. Rate : 098 BPM Atrial Rate : 098 BPM P-R Int : 146 ms QRS Dur : 080 ms QT Int : 370 ms P-R-T Axes : 066 022 009 degrees QTc Int : 472 ms Normal sinus rhythm Normal ECG Confirmed by ALENA MCKENZIE, OLEGARIO ([id number]), publications editor GABY COULTER ([id number]) on 06/03/2018 8:47:40 AM Referred By: Mónica Garcia Confirmed By:OLEGARIO DAI MD 06/03/18 0847 Date Olegario Dai MD CC: Mónica Garcia DO; Humera Rowland DO Signed CBC-COMPLETE BLOOD CNT Collected: 06/02/2018 Status: F Source: [place] NO DIFF 3:51 PM [facility] REPOSITORY TYPE CODE TESTS RESULT OUT OF RANGE REFERENCE UNITS LAB L100.1000 4.4-11.0 K/mm3 Normal WBC 10.3 LAB L100.1200 4.2-5.4 M/mm3 Normal RBC 4.62 LAB L100.1300 12.0-15.0 g/dl Normal HGB 13.5 LAB L100.1400 37-47 % Normal HCT 41.1 LAB L100.1500 81-99 fL Normal MCV 89.0 LAB L100.1600 27.0-32.0 pg Normal MCH 29.2 LAB L100.1700 32-36 g/gl Normal MCHC 32.8 LAB L100.1810 11.6-14.6 % Normal RDW CV 12.9 LAB L100.1820 35.1-43.9 fl Normal RDW SD 41.2 LAB L100.1900 150-450 K/mm3 Normal PLT 379 LAB L100.2000 6.2-12.0 fl Normal MPV 9.8 Performed By: #### L100.0500 #### [facility] [address] [place], [address] BASIC METABOLIC Collected: 06/02/2018 Status: F Source: [place] PROFILE (BMP) 3:51 PM [facility] REPOSITORY TYPE CODE TESTS RESULT OUT OF RANGE REFERENCE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 and job demands. Goal Time Frame: 4-6 Weeks Goal 5:: Patient be able to perform ADL'S and housework chores,job demands with min to no limitations above overhead Goal Time Frame: 4-6 Weeks - Rehabilitation Potential Physical Therapy Diagnosis: This patient shoulders right shoulder injury from contusion shoulder with pain and weakness which impairs ADL'S and function thus will benifit from skilled PT Rehabilitation Potential: Good - Anticipated Interventions Patient/Client Instruction: Educate patient on: Condition, Plan of Care For the Purpose of:: To decrease pain, To increase ROM, To improve ability to perform ADL's, To increase tolerance to activity/condition/position, To improve performance and independence with ADL's, To improve ability of physical actions for home/community/work/leisure, To improve health of tissue, To decrease soft tissue restriction, To improve self management, To improve ability to perform tasks related to life management Therapeutic Exercise to Include: Strength training, Postural training, Scapular Strength/Stabilization For the Purpose of:: To decrease pain, To increase ROM, To improve ability to perform ADL's, To increase tolerance to activity/condition/position, To improve performance and independence with ADL's, To improve ability of physical actions for home/community/work/leisure, To improve health of tissue, To increase flexibility/ROM, To improve ability to perform tasks related to life management IF ES: Yes Cryotherapy (ice pack, ice massage): Yes Thermo therapy (hot pack): Yes Ultrasound (thermal/non thermal): Yes For the Purpose of:: To decrease pain, To increase ROM, To improve nutrient delivery to tissue, To increase oxygenation perfusion, To improve health of tissue, To decrease soft tissue restriction Thank you for the opportunity to evaluate your patient. For Medicare and Medicare HMO plans, please review the plan of care and approve it. It will need to be FAXED BACK to us at [phone] for Medicare purposes. Please let me know if there are questions or concerns regarding this plan of care. Physician Signature: Date: <Electronically signed by Elder Seo PT, Cert. MDT, OCS> 05/09/16 6176 CC: Steffanie Pugh MD; Humera Rowland DO DORA Signed For Medicare only, by signing this I certify the plan of care. Physicians Signature Date SPINE CERVICAL Observed: 07/30/2017 Status: F Source: [place] (ROUTINE) 5:57 PM [facility] REPOSITORY [facility] Imaging Services [address] [place] [id number] Spine Cervical (Routine) MR#: [id number] Acct: [id number] Name: LAURA ROMERO Rep #: [id number] : 1965 F 52 From: Gaby Elaine MD PCP: Humera Rowland DO Status: REG CLI Study: Spine Cervical (Routine) Date of Exam: 07/30/17 Exam# [id number] Ordering Dr: Byron Rodriguez MD MR Spine Cervical W/O Contrast INDICATION: Right shoulder pain following neck injury COMPARISON: None TECHNIQUE: Multiplanar multisequence MRI examination of the cervical spine without contrast FINDINGS: The cervical spine is straightened, likely positional. Height of the vertebral bodies is preserved. Bone marrow signal is normal. Positioning of the cerebellar tonsils is normal. The cervical cord is normal in course, caliber, and signal intensity. There is mild flattening of the cord at the C5-6 and C6-7 levels without evidence of signal change. C2-3 level and C3-4 level unremarkable. C4-5 level demonstrates left predominant uncovertebral joint hypertrophy with left neural foraminal stenosis. Spinal canal and right neuroforamen are patent. C5-6 level demonstrates degenerative disc disease with circumferential disc osteophyte formation and uncovertebral joint hypertrophy. Broad-based posterior disc protrusion is present and disc osteophytes are seen extending into the neuroforamina bilaterally. Findings result in moderate spinal canal stenosis and bilateral neuroforaminal stenosis, left worse than right. Residual AP diameter of the dural sac is 7 mm. The cord is mildly flattened. C6-7 level demonstrates degenerative disc disease with a focal left paracentral disc protrusion and bilateral uncovertebral joint hypertrophy. Findings result in mild spinal canal and bilateral neuroforaminal stenosis. Residual AP diameter of the dural sac is 8 mm. C7-T1 level is unremarkable. MRI/Spine Cervical (Routine) IMPRESSION: Left predominant facet arthritic changes with neuroforaminal narrowing at C4-5, C5-6, and C6-7. Degenerative disc disease at C5-6 and C6-7 with posterior disc protrusions and spinal canal narrowing as detailed above. at [id number] Reported and signed by: Gaby Elaine MD Electronically Signed: Gaby Elaine MD at 22:41 EST Tel , Service support , CC: Byron Rodriguez MD; Humera Rowland DO Insight Leader: Signed ALLERGIES ALLERGIES DATE TYPE / CODE NAME / CODE REACTION SEVERITY SOURCE 06/02/2018 Drug DANIEL Other Unknown [facility] [facility] Allergy/4160 Inhibitors/F0 Hospital 04302(SNOMED [id number](RXNO Repository CT) RM) 05/12/2018 Drug No Known Unknown [facility] Allergy/4160 Allergies/F00 Hospital 56847(SNOMED 2748358(RXNOR Repository CT) M) 03/24/2016 Drug No Known [facility] Allergy/4160 Allergies/F00 Hospital 04106(SNOMED 6237105(RXNOR Repository CT) M) ENCOUNTERS ENCOUNTERS ADMIT/DISCHARGE ACCOUNT ADMITTING ENCOUNTER LOCATION SOURCE NUMBER CLASS 07/14/2018/ [id number] Ambulatory BMSBuilding:B [place] [facility] 8 [facility] Repository 07/09/2018 [id number] [place] [facility] ing:PT Repository 06/19/2018/ [id number] Ambulatory BMSBuilding:B [place] 8 5 [facility] Repository 06/04/2018 [id number] Ambulatory BMSBuilding:[place] 5 [facility] Repository 06/04/2018/ [id number] [place] [address] [facility] ing:SDCRoom: Repository AC19 06/02/2018 [id number] Ambulatory BMSBuilding:W [place] 1 [facility] Repository 05/12/2018/ [id number] Ambulatory BMSBuilding:B [place] 8 1 [facility] Repository 05/02/2018 [id number] [place] [facility] ing:MRI Repository 04/22/2018/ [id number] Ambulatory BMSBuilding:B [place] 8 5 [facility] Repository 02/04/2018 [id number] [place] [facility] ing:HPRAD Repository 02/04/2018/ [id number] Ambulatory BMSBuilding:B [place] 8 5 [facility] Repository 11/27/2017/ [id number] Ambulatory [place] [address] [facility] ing:PT Repository 07/30/2017 [id number] [place] 1 [facility] Hospital ing:MRI Repository 07/26/2016/ [id number] Ambulatory [place] 7 5 [facility] Hospital ing:PT Repository PAYERS PAYERS ENCOUNTER GUARANTOR PAYER SUBSCRIBER SOURCE 07/14/2018 [facility] Insurance:UMR AVEL Wadsworth [place] [id number] [id number] WIRTHDOB: [facility] Number: [id number], [place] [id number] Repository 264[address]Ufu: (207) Date:8514-99-50BT [phone] (HP) [address] [place] [address]OF: 07/14/2018 Secondary NOT GIVENUNK [place] Insurance:SELF PAY [facility] Number: Effective Repository Date:2018-07-11 07/09/2018 AVEL [place] Primary Insurance:UMR AVEL W[place] [id number] [id number] WIRTHDOB: Community [facility] Number: [id number], [place] [id number] Repository [address]Srw: ([phone]) Date:7764-76-05HC [phone] () [address] [place] [address]ZW: 07/09/2018 Secondary NOT GIVENUNK [place] Insurance:SELF PAY [facility] Number: Effective Repository Date:2018-06-19 06/19/2018 AVEL W[place] Primary Insurance:UMR AVEL Wadsworth [place] [id number] [id number] WIRTHDOB: Community [facility] Number: [id number], [place] [id number] Repository [address]Ogl: ([phone]) Date:2510-96-01LG [phone] () [address] [place] [address]KC: 06/19/2018 Secondary NOT GIVENUNK [place] Insurance:SELF PAY [facility] Number: Effective Repository Date:2018-06-18 06/04/2018 AVEL Wadsworth Primary Insurance:UMR AVEL Wadsworth [place] [id number] [id number] WIRTHDOB: Community [facility] Number: [id number], [place] [id number] Repository [address]Rsd: ([phone]) Date:9893-77-66MO [phone] (HP) [address] [place] [address]LD: 06/04/2018 Secondary NOT GIVENUNK [place] Insurance:SELF PAY [facility] Number: Effective Repository Date:2018-06-04 06/04/2018 AVEL W[place]sworth Primary Insurance:UMR AVEL Wadsworth [place] [id number] [id number] WIRTHDOB: [facility] GRUPO Number: [id number], [place] [id number] Repository [address]Lnh: ([phone]) Date:3487-55-44BG [phone] () [address] [place] [address]WP: 06/04/2018 Secondary NOT GIVENUNK [place] Insurance:SELF PAY [facility] Number: Effective Repository Date:2018-05-21 06/02/2018 AVEL W[place] Primary Insurance:UMR AVEL Wadsworth [place] [id number] [id number] [facility] Number: [id number], [place] [id number] Repository [address]Czm: ([phone]) Date:8085-15-72ZW [phone] () [address] [place] [address]RP: 06/02/2018 Secondary NOT GIVENUNK [place] Insurance:SELF PAY [facility] Number: Effective Repository Date:2018-06-02 05/12/2018 AVEL Wadsworth Primary Insurance:UMR AVEL Wadsworth [place] [id number] [id number] [facility] Number: [id number], [place] [id number] Repository [address]Hqs: ([phone]) Date:9243-39-62QD [phone] () [address] [place] [address]EJ: 05/12/2018 Secondary NOT GIVENUNK [place] Insurance:SELF PAY [facility] Number: Effective Repository Date:2018-05-12 05/02/2018 AEVL [place] Primary Insurance:UMR AVEL Wadsworth [place] [id number] [id number] WIRTHDOB: [facility] GRUPO Number: [id number], [place] [id number] Repository [address]Vhg: (330) Date:9587-08-84HF [phone] (HP) [address] [place] [address]JU: 05/02/2018 Secondary NOT GIVENUNK [place] Insurance:SELF PAY [facility] Number: Effective Repository Date:2018-04-25 04/22/2018 AVEL Wadsworth Primary Insurance:UMR AVEL Wadsworth [place] [id number] [id number] WIRTHDOB: Community [employer] Number: [id number], [place] [id number] Repository 16[address]Sbl: ([phone]) Date:0481-58-98DG [phone] (HP) [address] [place] [address]JD: 04/22/2018 Secondary NOT GIVENUNK [place] Insurance:SELF PAY [facility] Number: Effective Repository Date:2018-04-22 02/04/2018 AVEL Wadsworth Primary Insurance:UMR AVEL Wad[place] [id number] [id number] WIRTHDOB: Community [facility] Number: [id number], [place] [id number] Repository [address]Uvv: ([phone]) Date:2855-43-34QQ [phone] (HP) [address] [place] [address]UB: 02/04/2018 Secondary NOT GIVENUNK [place] Insurance:SELF PAY [facility] Number: Effective Repository Date:2018-02-04 02/04/2018 AVEL Wadsworth Primary Insurance:UMR AVEL Wadsworth [place] [id number] [id number] WIRTHDOB: Community [facility] Number: [id number], [place] [id number] Repository [address]Wmk: (330) Date:6263-58-60UE [phone] (HP) [address] [place] [address]HC: 02/04/2018 Secondary NOT GIVENUNK [place] Insurance:SELF PAY [facility] Number: Effective Repository Date:2018-02-04 11/27/2017 AVEL Wadsworth Primary Insurance:UMR AVEL Ananth [place] [id number] [id number] WIRTHDOB: [facility] Number: [id number], [place] [id number] Repository [address]Wzt: 330) Date:5772-94-69CH [phone] () [address] [place] [address]ZB: 11/27/2017 Secondary NOT GIVENUNK [place] Insurance:SELF PAY [facility] Number: Effective Repository Date:2017-10-17 07/30/2017 Avel W[place] Primary LAURA A [place] [id number] Insurance:SELF INS WIRTHDOB: [facility] [id number], [place] Number: Repository [address]Fkb: [phone] [id number] [phone] (HP) Date:4494-99-25TL [address] [place] [address]FX: 07/30/2017 Secondary NOT GIVENUNK [place] Insurance:SELF PAY [facility] Number: Effective Repository Date:2017-07-25 07/26/2016 AVEL Wadsworth Primary LAUAR A [place] [id number] Insurance:SELF INS WIRTHDOB: [facility] [id number] Number: Repository [address]Xrm: (054) [id number] [phone] (HP) Date:[address] [place] [address]CD: 07/26/2016 Secondary AVEL Wadsworth [place] Insurance:UMR RUY WIRTHDOB: [facility] [address]Qwjnpu Number: [id number] Hospital [id number] Repository Date:3844-49-32RC [address] [place] [phone]:
== END 2018-06-04 20:49 | disposition home or self-care (01) ==
LOC: SDC 11:20 → AC 11:28
PROVIDERS: Family Provider Family Medicine; PCP Family Medicine; Referring Provider Orthopaedic Surgery; Visit Provider Orthopaedic Surgery
PROC: (CPT 29827; principal; 2018-06-04 12:30)
DX: M75.102 Unspecified rotator cuff tear or rupture of left shoulder, not specified as traumatic (principal); F41.9 Anxiety disorder, unspecified; E07.9 Disorder of thyroid, unspecified; Z79.899 Other long term (current) drug therapy; I10 Essential (primary) hypertension; Z87.891 Personal history of nicotine dependence; M75.42 Impingement syndrome of left shoulder
CPT/HCPCS: 29826; 29827; 29828; 36415; 80048; 84443; 85027; 93005; C1713; J7120; J2405

== ENCOUNTER 2018-08-11 11:30 | Outpatient (RCR) | payer OTHER, SELFPAY ==
[2018-06-19 10:10] VITALS: BMI 50.2
--- NOTE | 2018-06-30 15:14 | HP.PTEVAL ---
Patient's Visit Information LAURA ROMERO is a 53 year old F referred to Physical Therapy by Mónica Garcia DO with a diagnosis of L rot cuff repair. Date of Evaluation: 06/30/18 Physical Therapist: Avery Sylvester PT, ATC - Visit Plan Frequency: 2-3x /Week Duration: 6 Weeks Plan: Follow Rot cuff protocal. CP for pain - Subjective Findings: DOS: 06/04/18. Pt had a L shoulder rotator cuff repair and biceps tenodesis. Pt reports she injured her shoulder by trying to throw a bag that was heavy. Pt reports she immediately knew she injured her shoulder, but didn't want to go through the surgery again as she had R rot cuff repair 4 years ago. Pt reports this surgery was much more painful than her R shoulder. Pt reports she is glad she had the surgery done now. Pt reports the severe pain she had prior to the surgery is gone now. Intermittent sleep difficulty secondary to pain. Pt is R hand dominant. Pt works for the [employer]. 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 1/10 at rest, 6/10 at worst - Pain L shoulder Pain Intensity (Out of 10): 1 Pain Intensity Range: 6 - Objective Neuro: B UE sensation is WNL to light touch. R biceps reflex= 2/3. Observation: Incisions are fully healed with no signs of infection. ROM: L shoulder flex and abd= 90 degrees. R shoulder flex= 160, abd= 128 degrees. MMT: R shoulder 5/5 throughout. L shoulder NT - Goals Goal 1:: Decrease L shoulder pain x 50% to aid with sleep Goal Time Frame: 4-6 Weeks Goal 2:: Increase L shoulder flex and abd ROM x40 degrees to aid with overhead lifting Goal Time Frame: 4-6 Weeks Goal 3:: Increase L shoulder strength x 1 grade to aid with IADL's Goal Time Frame: 4-6 Weeks Goal 4:: I with HEP Goal Time Frame: 4-6 Weeks - Rehabilitation Potential Physical Therapy Diagnosis: L shoulder pain, weakness, and limited ROM secondary to L shoulder rot cuff repair Rehabilitation Potential: Good - Anticipated Interventions Patient/Client Instruction: Educate patient on: Condition, Plan of Care For the Purpose of:: To improve self management Therapeutic Exercise to Include: Strength training, Endurance training, Flexibilty training, Passive ROM, Active ROM, Scapular Strength/Stabilization For the Purpose of:: To decrease pain, To increase ROM, To improve muscle performance and motor function Cryotherapy (ice pack, ice massage): Yes For the Purpose of:: To decrease pain Thank you for the opportunity to evaluate your patient. For Medicare and Medicare HMO plans, please review the plan of care and approve it. It will need to be FAXED BACK to us at [phone] for Medicare purposes. For Medicare only, by signing this I certify the plan of care. Please let me know if there are questions or concerns regarding this plan of care. Physician Signature: Date:
--- NOTE | 2018-06-30 15:17 | HP.PTEVAL_ITS ---
Patient's Visit Information LARUA ROMERO is a 53 year old F referred to Physical Therapy by Mónica Garcia DO with a diagnosis of L rot cuff repair. Date of Evaluation: 06/30/18 Physical Therapist: Avery Sylvester PT, ATC - Visit Plan Frequency: 2-3x /Week Duration: 6 Weeks Plan: Follow Rot cuff protocal. CP for pain - Subjective Findings: DOS: 06/04/18. Pt had a L shoulder rotator cuff repair and biceps tenodesis. Pt reports she injured her shoulder by trying to throw a bag that was heavy. Pt reports she immediately knew she injured her shoulder, but didn't want to go through the surgery again as she had R rot cuff repair 4 years ago. Pt reports this surgery was much more painful than her R shoulder. Pt reports she is glad she had the surgery done now. Pt reports the severe pain she had prior to the surgery is gone now. Intermittent sleep difficulty secondary to pain. Pt is R hand dominant. Pt works for the [employer]. 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 1/10 at rest, 6/10 at worst - Pain L shoulder Pain Intensity (Out of 10): 1 Pain Intensity Range: 6 - Objective Neuro: B UE sensation is WNL to light touch. R biceps reflex= 2/3. Observation: Incisions are fully healed with no signs of infection. ROM: L shoulder flex and abd= 90 degrees. R shoulder flex= 160, abd= 128 degrees. MMT: R shoulder 5/5 throughout. L shoulder NT - Goals Goal 1:: Decrease L shoulder pain x 50% to aid with sleep Goal Time Frame: 4-6 Weeks Goal 2:: Increase L shoulder flex and abd ROM x40 degrees to aid with overhead lifting Goal Time Frame: 4-6 Weeks Goal 3:: Increase L shoulder strength x 1 grade to aid with IADL's Goal Time Frame: 4-6 Weeks Goal 4:: I with HEP Goal Time Frame: 4-6 Weeks - Rehabilitation Potential Physical Therapy Diagnosis: L shoulder pain, weakness, and limited ROM secondary to L shoulder rot cuff repair Rehabilitation Potential: Good - Anticipated Interventions Patient/Client Instruction: Educate patient on: Condition, Plan of Care For the Purpose of:: To improve self management Therapeutic Exercise to Include: Strength training, Endurance training, Flexi bilty training, Passive ROM, Active ROM, Scapular Strength/Stabilization For the Purpose of:: To decrease pain, To increase ROM, To improve muscle performance and motor function Cryotherapy (ice pack, ice massage): Yes For the Purpose of:: To decrease pain Thank you for the opportunity to evaluate your patient. For Medicare and Medicare HMO plans, please review the plan of care and approve it. It will need to be FAXED BACK to us at [phone] for Medicare purposes. For Medicare only, by signing this I certify the plan of care. Please let me know if there are questions or concerns regarding this plan of care. Physician Signature: Date:
--- NOTE | 2018-08-11 12:17 | HP.PTREVAL ---
Mónica Garcia, DO, It has been my pleasure to treat LAURA ROMERO over the last 10 visits for L rot cuff repair (06/04). Please see the progress note below for an update on the physical therapy plan of care! Subjective: Pt is very discouraged at this time. PT is not helping at all. Objective/Function: L shoulder pain ranges 7/10 and pretty much stays there. L shoulder ROM: flex= 65, abd= 55, ER= 25, IR severely limited. Pt is not making progress at this time Plan Plan: Hold PT until after Dr. visit. RTD Goals Goal 1:: Decrease L shoulder pain x 50% to aid with sleep Goal Time Frame: 4-6 Weeks Goal 2:: Increase L shoulder flex and abd ROM x40 degrees to aid with overhead lifting Goal Time Frame: 4-6 Weeks Goal 3:: Increase L shoulder strength x 1 grade to aid with IADL's Goal Time Frame: 4-6 Weeks Goal 4:: I with HEP Goal Time Frame: 4-6 Weeks Anticipated Interventions Patient/Client Instruction: Educate patient on: Condition, Plan of Care For the Purpose of:: To improve self management Therapeutic Exercise to Include: Strength training, Endurance training, Flexibilty training, Passive ROM, Active ROM, Scapular Strength/Stabilization For the Purpose of:: To decrease pain, To increase ROM, To improve muscle performance and motor function Cryotherapy (ice pack, ice massage): Yes For the Purpose of:: To decrease pain Please do not hesitate to contact me at [phone] by phone or if you have questions or concerns regarding this new plan of care! Sincerely, Avery Sylvester, PT, ATC
--- NOTE | 2019-01-06 08:32 | HP.PTDCNRP_ITS ---
HP - Discharge Summary (1) - Patient Information LAURA ROMERO was seen in my office for initial evaluation on 06/30/18. The following Plan of Care was established for this patient: Initial Frequency: 2-3x /Week Initial Duration: 6 Weeks - Anticipated Interventions Patient/Client Instruction: Educate patient on: Condition, Plan of Care For the Purpose of:: To improve self management Therapeutic Exercise to Include: Strength training, Endurance training, Flexibilty training, Passive ROM, Active ROM, Scapular Strength/Stabilization For the Purpose of:: To decrease pain, To increase ROM, To improve muscle performance and motor function Cryotherapy (ice pack, ice massage): Yes For the Purpose of:: To decrease pain This patient was last seen in our office . Pertinent comments regarding their Physical therapy will appear below: Pt was treated for 10 PT visits for her L shoulder pain through the date of 08/11/18. Pt has not returned through this date and is therefore discontinued at this time. At this point I will be discontinuing this patient from physical therapy. I wou ld be happy to see this patient again in the future if found appropriate by the physician. Thank you! Avery Sylvester, PT, ATC
== END 2018-08-11 19:00 | disposition home or self-care (01) ==
LOC: PT 11:30
PROVIDERS: Family Provider Family Medicine; PCP Family Medicine; Visit Provider Orthopaedic Surgery
DX: Z98.890 Other specified postprocedural states (principal)
CPT/HCPCS: 97014; 97110; 97140; 97162; 97530; G0283

== ENCOUNTER → 2018-08-23 08:14 | Outpatient (CLI) | payer OTHER, SELFPAY ==
[2018-08-11 13:40] VITALS: BMI 50.2
--- NOTE | 2018-08-23 08:19 | MRI_ITS ---
STUDY: MRI LEFT SHOULDER REASON FOR EXAM: Female, 53 years old. Left shoulder pain. Fall. Previous rotator cuff repair June 04, 2018 TECHNIQUE: Standardized fat and water weighted pulse sequences were obtained in all 3 orthogonal planes. COMPARISON: May 02, 2018 FINDINGS: There is postoperative change with tract from hardware in the anterior humeral head. There is supraspinatus tendinosis with tendon attrition, and partial bursal surface supraspinatus tendon tear, series 5 image 16/20. Normal infraspinatus tendon. Normal subscapularis tendon. Normal teres minor tendon. Normal supraspinatus muscle. Normal infraspinatus muscle. Normal subscapularis muscle. Normal teres minor muscle. Normal glenohumeral articulation. Normal humeral head and visualized proximal humerus. There is tear versus tenotomy at the biceps labral complex. There is subluxation of the intracapsular long biceps tendon. Normal labrum. Normal capsulo- ligamentous complex. Normal rotator interval. There is mild osteoarthritis of the acromioclavicular articulation. There is a Type II morphology (curved) acromion, with a neutral orientation. There is mild fluid distention of the subacromial bursa, consistent with mild subacromial-subdeltoid bursitis. Normal visualized coracohumeral and coracoacromial ligaments. Normal quadrilateral space. Normal axillary space. Normal deltoid muscle. Normal trapezius muscle. MRI/Upper Ext Joint Only(Routine) IMPRESSION: Postoperative changes. Tendinosis of the supraspinatus with partial tear. Tear at the biceps anchor versus tenotomy. Subluxation of the long head of the biceps. Subacromial subdeltoid bursitis. Electronically Signed: Dae Suarez MD at 14:24 EST , Service support ,
== END ==
PROVIDERS: Family Provider Family Medicine; PCP Family Medicine; Referring Provider Physician Assistant; Visit Provider Physician Assistant
DX: M75.122 Complete rotator cuff tear or rupture of left shoulder, not specified as traumatic (principal); S49.92XA Unspecified injury of left shoulder and upper arm, initial encounter
CPT/HCPCS: 73221

== ENCOUNTER 2019-05-05 08:30 | Outpatient (RCR) | payer OTHER, SELFPAY ==
[2019-03-31 14:20] VITALS: BMI 50.2
--- NOTE | 2019-04-28 09:03 | HP.PTEVAL_ITS ---
Patient's Visit Information LAURA ROMERO is a 53 year old F referred to Physical Therapy by Mónica Garcia DO with a diagnosis of L shoulder bursitis. Date of Evaluation: 04/28/19 Physical Therapist: Avery Sylvester PT, ATC - Visit Plan Frequency: 1x/Week Duration: 2 Weeks Plan: Issue and instruct pt on HEP of L shoulder rot cuff strengthening and scap stab ex's - Subjective Findings: DOS: 06/04/19. Pt had a rotator cuff repair with a biceps tenodesis performed. Pt had PT for this and was doing well until she slipped on ice and reinjured L shoulder. Pt reports they did an MRI which revealed bursitis and possibly a new tear on the rotator cuff. Pt has been resting since then, but she continues to have pain. Pt reports her goal is to get a HEP that she can continue with independently. Pt reports she also has some tingling in her L UE along the ulnar nerve distribution in her L hand that is causing her to feel weak at times. Occasional sleep difficulty secondary to pain. Pt is R hand dominant. 2/10 pain at rest, 7/10 pain at worst (lifting objects at work). - Pain L shoulder Pain Intensity (Out of 10): 2 Pain Intensity Range: 7 - Objective Neuro: B UE sensation is WNL to light touch. B bicepital reflex= 2/3. Palpation: Pt is very sore on the posterior and lateral aspects of L shoulder. No obvious deformity at this time. ROM: R shoulder flex= 145, abd= 110, IR WNL, ER= 45 degrees; L shoulder flex= 120, abd= 90, ER= 40, IR WNL. MMT: B shoulders are rated at 4-/5 throughout. Special testing: pos empty can test - Goals Goal 1:: I with HEP Goal Time Frame: 2 Weeks - Rehabilitation Potential Physical Therapy Diagnosis: L shoulder pain, weakness, and limited ROM secondary to L shoulder bursitis Rehabilitation Potential: Good - Anticipated Interventions Patient/Client Instruction: Educate patient on: Condition, Plan of Care For the Purpose of:: To improve self management Therapeutic Exercise to Include: Strength training, Scapular Strength/Stabilization For the Purpose of:: To decrease pain, To increase ROM, To improve muscle per formance and motor function Thank you for the opportunity to evaluate your patient. For Medicare and Medicare HMO plans, please review the plan of care and approve it. It will need to be FAXED BACK to us at [phone] for Medicare purposes. For Medicare only, by signing this I certify the plan of care. Please let me know if there are questions or concerns regarding this plan of care. Physician Signature: Date:
--- NOTE | 2019-06-26 13:50 | HP.PT.NRP ---
HP - Discharge Summary (1) - Patient Information LAURA ROMERO was seen in my office for initial evaluation on 04/28/19. The following Plan of Care was established for this patient: Initial Frequency: 1x/Week Initial Duration: 2 Weeks - Anticipated Interventions Patient/Client Instruction: Educate patient on: Condition, Plan of Care For the Purpose of:: To improve self management Therapeutic Exercise to Include: Strength training, Scapular Strength/Stabilization For the Purpose of:: To decrease pain, To increase ROM, To improve muscle performance and motor function This patient was last seen in our office . Pertinent comments regarding their Physical therapy will appear below: Pt was treated for 2 PT visits for L shoulder pain through the date of 05/05/19. Pt has not returned through todays date and is discontinued at this time. At this point I will be discontinuing this patient from physical therapy. I would be happy to see this patient again in the future if found appropriate by the physician. Thank you! Avery Sylvester, PT, ATC
== END 2019-05-05 19:00 | disposition home or self-care (01) ==
LOC: PT 08:30
PROVIDERS: Family Provider Family Medicine; PCP Family Medicine; Referring Provider Orthopaedic Surgery; Visit Provider Orthopaedic Surgery
DX: M75.42 Impingement syndrome of left shoulder (principal); R53.1 Weakness
CPT/HCPCS: 97161; 97530

== ENCOUNTER 2021-09-14 15:00 | Outpatient (RCR) | payer OTHER, SELFPAY | END 2021-09-21 23:59 | LOC: DC 15:00 | PROVIDERS: PCP Family Medicine; Referring Provider Family Medicine; Visit Provider Family Medicine | DX: E11.9 Type 2 diabetes mellitus without complications (principal); I10 Essential (primary) hypertension; G47.33 Obstructive sleep apnea (adult) (pediatric) | CPT/HCPCS: 97802; G0108 ==

== ENCOUNTER 2021-11-02 15:41 | Outpatient (RCR) | payer OTHER, SELFPAY | END 2021-11-21 23:59 | LOC: DC 15:41 | PROVIDERS: PCP Family Medicine; Referring Provider Family Medicine; Visit Provider Family Medicine | DX: E11.9 Type 2 diabetes mellitus without complications (principal); I10 Essential (primary) hypertension; G47.30 Sleep apnea, unspecified | CPT/HCPCS: 97803 ==

== ENCOUNTER 2021-12-13 05:25 | Day surgery (SDC) | payer OTHER, SELFPAY ==
--- NOTE | 2021-12-13 05:53 | HP.PCM_ITS ---
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: No Is patient in pain?: No Allergies DANIEL Inhibitors Adverse Reaction (Verified 10/16/21 14:35) Other Medications citalopram 40 mg PO DAILY 04/27/14 [History Confirmed 10/16/21] levothyroxine 175 mcg PO DAILY 04/27/14 [History Confirmed 10/16/21] spironolactone 25 mg PO DAILY 04/27/14 [History Confirmed 10/16/21] meloxicam 7.5 mg tablet 7.5 mg PO DAILY #30 tab 03/31/19 [Rx Confirmed 10/16/21] tramadol 50 mg tablet 50 mg PO Q8H PRN #60 tab 03/31/19 [Rx Confirmed 10/16/21] metformin 500 mg tablet 500 mg PO DAILY 10/16/21 [History Confirmed 10/16/21] PFSH Medical History?(Updated 10/16/21 @ 14:[address] Jaki Nava MD) Anxiety Depression Hemorrhoids Positive colorectal cancer screening using Cologuard test Surgical History?(Updated 10/16/21 @ 14:33 by Celsa Saturday) History of carpal tunnel release History of delivery History of hernia repair History of knee replacement History of rotator cuff surgery History of tonsillectomy Family History? Grandmother Diabetes Social History?(Updated 10/16/21 @ 14:34 by Celsa Saturday) Smoking Status:? Former smoker alcohol intake:? never substance use type:? does not use HPI HPI HPI: LAURA ROMERO, is a 56 F who presents to the office today for positive Cologuard.? Patient states she has bowel moods about every 2 days.? Patient previously had a colonoscopy back in due to abdominal pain and was diagnosed with IBS.? Patient states she does have a hemorrhoid but denies any obvious blood in her stool.? Patient denies any chronic abdominal pain.? Patient is a newly diagnosed diabetic and is on metformin was more regular with the metformin prior to starting tramadol which she takes twice daily due to neck pain.? Patient denies any family history of colon cancer.? Patient has not gotten the COVID-19 vaccine. ROS General General: Yes weight change and fatigue; No appetite, colon cancer or breast cancer HEENT HEENT: Yes eye surgery; No difficulty swallowing, eye injury, swollen glands or hoarseness Endo Endocrine: Yes diabetes mellitus; No thyroid disease, thyroid cancer, Hair loss, heat intolerance or cold intolerance Skin Skin: No rash or changing moles Musc Musculoskeletal: No back problems, arthritis, rheumatoid arthritis, gout or joint pain Cardio Cardiovascular: Yes high blood pressure; No murmur, pacemaker, heart disease, atrial fibrillation, heart attack, heart stent, palpitations, shortness of breat with exertion or chest pain Psych Psychiatric: Yes depression and anxiety; No hearing voices Resp Respiratory: No shortness of breath, Yes sleep apnea, No cough, No COPD, No asthma, No emphysema and No wheezing Gastro Gastrointestinal: No abdominal pain, No nausea or vomiting, No diarrhea, No constipation, No blood in stool, No acid reflux, Yes hemorrhoids, No ulcers, No gallbladder problem and No black,tarry stools Renard Hematologic: No blood thinners, No blood disorders, No bleeding, No anemia and No blood clots Neuro Neurologic: No abnormal speech and No confusion Exam Const General: cooperative, healthy appearing, comfortable and no acute distress Neck Neck: normal visual inspection Resp Effort & Inspection: normal respiratory effort Cardio Rate: regular rate GI Inspection: non-distended Palpation: soft, no guarding and nontender Skin General: no rashes or lesions noted Neuro General: patient oriented x3 Psych Affect: normal affect Assessment and Plan Assessment and Plan (1) Positive colorectal cancer screening using Cologuard test: ?Status:?Inactive ?Comment: August 2021 ?Plan - Dr. Jaki Nava MD: I have discussed the above with the patient. I have offered the patient colonoscopy for evaluation. I have explained the risks/benefits of the procedure and described the procedure.? I have discussed the risks with the patient, including but not limited to:? infection, bleeding, perforation of the GI tract requiring emergency surgery, inability to complete the procedure, injury to any internal organs, complications of anesthesia, etc. - the patient understands and agrees to proceed. I have answered all the patient's questions to the patient's satisfaction and the patient has no further questions. The patient has been given instructions for the colon cleansing preparation.? 1 day of clears, MiraLAX Dulcolax split prep. Jaki Nava M.D. Pager: [phone] [facility] [address] [place] [address], [facility], [address] [place] [address] Office: [phone] Dr[address] Jaki Nava is unavailable today. With patient permission I will assume the role of her procedure list. We will proceed with colonoscopy as indicated. Brandon Phelps M.D., F.A.C.S.
[2021-12-13 05:56] VITALS: BP 106/82; PULSE 98; RESP 16; TEMP 36.2; O2SAT 99; BMI 40.3
[2021-12-13] MEDS: Lactated Ringers 1,000 ML 15 ML IV (06:04)
[2021-12-13 06:11] LABS: Bedside Glucose 174 mg/dL (74-106)
--- NOTE | 2021-12-13 06:49 | OP.COLON_ITS ---
Patient Name: Janiya Isabel Procedure Date: 12/13/2021 6:11 AM Date of : 1965 Age: 56 Procedure: Colonoscopy Indications: Cologuard positive Providers: Brandon Phelps MD Referring MD: Humera Rowland Medicines: See the Anesthesia note for documentation of the administered medications Patient Profile: Last Colonoscopy: more than 10 years ago. Complications: No immediate complications. Procedure: Pre-Anesthesia Assessment: - Prior to the procedure, a History and Physical was performed, and patient medications and allergies were reviewed. The patient's tolerance of previous anesthesia was also reviewed. The risks and benefits of the procedure and the sedation options and risks were discussed with the patient. All questions were answered, and informed consent was obtained. Prior Anticoagulants: The patient has taken no previous anticoagulant or antiplatelet agents. ASA Grade Assessment: II - A patient with mild systemic disease. After reviewing the risks and benefits, the patient was deemed in satisfactory condition to undergo the procedure. After I obtained informed consent, the scope was passed under direct vision. Throughout the procedure, the patient's blood pressure, pulse, and oxygen saturations were monitored continuously. The adult colonoscope was introduced through the anus and advanced to the cecum, identified by appendiceal orifice and ileocecal valve. The colonoscopy was performed without difficulty. The patient tolerated the procedure well. The quality of the bowel preparation was good. The ileocecal valve and the appendiceal orifice were photographed. Scope In: 6:29:45 AM Scope Withdrawal Time 0 hours 8 minutes 41 seconds Scope Out: 6:44:27 AM Total Procedure Duration Time 0 hours 14 minutes 42 seconds Findings: The digital rectal exam findings include non-thrombosed external hemorrhoids, non-thrombosed internal hemorrhoids and internal hemorrhoids that prolapse with straining, but spontaneously regress to the resting position (Grade II). Multiple diverticula were found in the sigmoid colon and descending colon. The exam was otherwise without abnormality. Impression: - Non-thrombosed external hemorrhoids, non-thrombosed internal hemorrhoids and internal hemorrhoids that prolapse with straining, but spontaneously regress to the resting position (Grade II) found on digital rectal exam. - Diverticulosis in the sigmoid colon and in the descending colon. - The examination was otherwise normal. - No specimens collected. Recommendation: - Discharge patient to home. - Resume previous diet. - Continue present medications. - Repeat colonoscopy in 10 years for screening purposes. Procedure Code(s): --- Professional --- 09673, Colonoscopy, flexible; diagnostic, including collection of specimen(s) by brushing or washing, when performed (separate procedure) Diagnosis Code(s): --- Professional --- K64.1, Second degree hemorrhoids K64.4, Residual hemorrhoidal skin tags K57.30, Diverticulosis of large intestine without perforation or abscess without bleeding CPT copyright 2017 [employer]. All rights reserved. The codes documented in this report are preliminary and upon java security engineer review may be revised to meet current compliance requirements. Brandon Phelps MD 12/13/2021 6:48:56 AM This report has been signed electronically. Number of Addenda: 0 Note Initiated On: 12/13/2021 6:11 AM
[2021-12-13 06:50] VITALS: BP 106/82; BP 94/52; PULSE 87; RESP 16; TEMP 36.6; O2SAT 97
--- NOTE | 2021-12-13 06:50 | OP.CCLET_ITS ---
12/13/2021 Humera Rowland [address] [place] [address] Re : Colonoscopy procedure for Janiya Isabel Dear Dr. Rowland This procedure was performed on Monday, December 13, 2021. My impressions and recommendations are as follows: Impressions : - Non-thrombosed external hemorrhoids, non-thrombosed internal hemorrhoids and internal hemorrhoids that prolapse with straining, but spontaneously regress to the resting position (Grade II) found on digital rectal exam. - Diverticulosis in the sigmoid colon and in the descending colon. - The examination was otherwise normal. - No specimens collected. Recommendations : - Discharge patient to home. - Resume previous diet. - Continue present medications. - Repeat colonoscopy in 10 years for screening purposes. My findings are described in the full procedure note, which is enclosed. If I can be of further assistance, please feel free to contact me at Doctor phone number(s): Work: . Sincerely, Brandon Phelps MD 12/13/2021 6:48:56 AM This report has been signed electronically.
[2021-12-13 06:55] VITALS: BP 106/82; BP 93/51; PULSE 85; RESP 16; O2SAT 96
[2021-12-13 07:00] VITALS: BP 102/59; BP 106/82; PULSE 82; RESP 14; O2SAT 97
[2021-12-13 07:05] VITALS: BP 102/63; BP 106/82; PULSE 84; RESP 14; TEMP 37.1; O2SAT 97
[2021-12-13 07:22] VITALS: BP 106/82
== END 2021-12-13 07:39 | disposition home or self-care (01) ==
LOC: EN 05:25 → AC 05:26
PROVIDERS: PCP Family Medicine; Referring Provider Family Medicine; Visit Provider Surgery
PROC: 0DJD8ZZ Inspection of Lower Intestinal Tract, Via Natural or Artificial Opening Endoscopic (ICD-10-PCS; CPT 45378; principal; 2021-12-13 06:25)
DX: K64.1 Second degree hemorrhoids (principal); E11.9 Type 2 diabetes mellitus without complications; F41.9 Anxiety disorder, unspecified; F32.A Depression, unspecified; Z79.899 Other long term (current) drug therapy; Z87.891 Personal history of nicotine dependence; I10 Essential (primary) hypertension; G47.30 Sleep apnea, unspecified; Z79.84 Long term (current) use of oral hypoglycemic drugs; M19.90 Unspecified osteoarthritis, unspecified site; Z86.16 Personal history of COVID-19; G43.909 Migraine, unspecified, not intractable, without status migrainosus; Z87.442 Personal history of urinary calculi; K64.4 Residual hemorrhoidal skin tags; K57.30 Diverticulosis of large intestine without perforation or abscess without bleeding
CPT/HCPCS: 45378; 82962; J7120

== ENCOUNTER → 2022-09-12 | Outpatient (CLI) | payer OTHER, SELFPAY ==
[2022-09-12 12:24] LABS: Absolute Lymphocyte Count 1.56 X10^3/uL (0.83-4.51); Absolute Neutrophil Count 4.4 X10^3/uL (2.0-7.7); Basophil# 0.04 X10^3/uL; Basophil% 0.6 % (0-1); Hematocrit 44.3 % (37-47); Hemoglobin 14.1 g/dL (12.0-15.0); Lymphocyte # 1.56 X10^3/ul (0.83-4.51); Lymphocyte % 23.4 % (19-41); Mean Corp Hgb Conc 31.8 g/dL (32-36); Mean Corpuscular Hgb 28.4 pg (27.0-32.0); Mean Corpuscular Volume 89.3 fL (81-99); Mean Platelet Vol. 9.7 fl (6.2-12.0); Monocyte# 0.48 X10^3/uL; Monocyte% 7.2 % (0-10); NRBC Flagged by Analyzer 0 % (0-5); Neutrophil # 4.36 X10^3/uL (2.7-7.7); Neutrophil % 65.5 % (47-70); Platelet Count 330 K/mm3 (150-450); RBC Distribution Width CV 13.1 % (11.6-14.6); RBC Distribution Width SD 42.7 fl (35.1-43.9); Red Blood Count 4.96 M/mm3 (4.2-5.4); White Blood Count 6.7 K/mm3 (4.4-11.0)
[2022-09-12 12:53] LABS: Microalbumin,Random Urine 5.6 mg/L (NO RANGE EST.); Microalbumin:Creatinine Ratio 8.8 mg/g CRE (<30 mg/g CRE)
[2022-09-12 13:00] LABS: Hemoglobin A1c 6.4 % (3.8-5.6)
[2022-09-12 13:03] LABS: ALB/GLOB Ratio 0.9 RATIO (0.9-2.4); AST(SGOT) 19 U/L (15-37); Alanine Aminotransfer ALT/SGPT 34 U/L (13-56); Albumin, Serum 3.8 g/dL (3.2-5.0); Alkaline Phosphatase 87 U/L (45-117); Anion Gap 5 (5-15); BUN 23 mg/dL (7-18); Calcium,Total 9.6 mg/dL (8.5-10.1); Chloride 104 mmol/L (98-107); Cholesterol 186 mg/dL (200); EST Glomerular Filtration Rate 108 mL/min (>60); Est Glom Filt Rate - Afr Amer 131 mL/min (>60); Free T3 2.1 pg/mL (2.18-3.98); Globulin 4.1 g/dL (2.2-4.2); Glucose 152 mg/dL (74-106); High Density Lipoprotein 44 mg/dL; Potassium 5.1 mmol/L (3.5-5.1); Protein, Total 7.9 g/dL (6.4-8.2); Sodium Level 138 mmol/L (136-145); T4 Free Direct 1.33 ng/dL (0.76-1.46); Thyroid Stim Hormone (TSH) 0.47 uIU/mL (0.358-3.74); Triglycerides 120 mg/dL; Very Low Density Lipoprotein 24 mg/dL (5-40)
== END | disposition home or self-care (01) ==
PROVIDERS: PCP Family Medicine; Referring Provider Family Medicine; Visit Provider Family Medicine
DX: E03.9 Hypothyroidism, unspecified (principal); E11.65 Type 2 diabetes mellitus with hyperglycemia; I10 Essential (primary) hypertension; Z51.81 Encounter for therapeutic drug level monitoring
CPT/HCPCS: 36415; 80053; 80061; 82043; 82570; 83036; 84439; 84443; 84481; 85025

== ENCOUNTER 2022-11-06 15:30 | Outpatient (RCR) | payer OTHER, SELFPAY ==
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
--- NOTE | 2022-11-06 16:02 | HP.PTDCSUM ---
It has been my pleasure to treat LAURA ROMERO referred by INEZ Padron, with the diagnosis of cervical spondylosis for a total of 4 visit(s). Discharge Date: 11/06/22 Please see the following information for a summary of their discharge status. Subjective: Doing home exercises regualarly, they are not bothersome but are not helpful. No improvement overall. Sat today at computer and scrunched down sticking chin out today and neck throbs now today. Sleep is not great still. Saw doctor last week and wants to think about surgery and wants another MRI. Pt wants to MRI and next step. Apologetic for missing appointments due to grandchild. neck pain Pain Intensity (Out of 10): 8 % Improvement: 0 Objective/Function: 45R rotation adn 35 L rotation and 35 extension all self limited by pain. No improvements in posture, ROM or subjective complaints. Pt frustrated with lack of progress. has continued HEp adn missed many visits but still not coming along as expected. Goal 1:: Patient have 55 B rotation adn 55 ext without deviation or pain in neck. Goal Progress: Not Progressing Goal 2:: TOLENTINO 2/10 at worst and neck pain 0-2/10 for a 505 improvement in overall pain levels. Goal Progress: Goal Met Goal 3:: Pt sweep without increased pain in neck or TOLENTINO Goal Progress: hurts Goal 4:: oswestry score 8 or better Goal Progress: Not Progressing Goal 5:: I appropr management of condtiion Goal Progress: Not Progressing Plan: d/c, pt back to doctor for next step(MRI and spine doctor?) Discharge Comments: Pt back to doctor for next step. If there are questions or concerns regarding this patient's physical therapy, please feel free to call me at [phone]. Thank you for the referral of this patient. Sincerely, Jonatan Rose, DPT, OCS, CSCS Balance/Gait/Functional tests - Balance/Special Test Scores Oswestry Neck Score: 24
== END 2022-11-06 19:00 | disposition home or self-care (01) ==
LOC: PT 15:30
PROVIDERS: PCP Family Medicine; Referring Provider Nurse Practitioner Family; Visit Provider Nurse Practitioner Family
DX: M50.30 Other cervical disc degeneration, unspecified cervical region (principal); M54.12 Radiculopathy, cervical region; M47.812 Spondylosis without myelopathy or radiculopathy, cervical region
CPT/HCPCS: 97110; 97140; 97162; 97164

== ENCOUNTER → 2022-12-28 | Outpatient (CLI) | payer OTHER, SELFPAY ==
--- NOTE | 2022-12-28 16:00 | MRI_ITS ---
STUDY: MRI CERVICAL SPINE WITHOUT CONTRAST REASON FOR EXAM: Female, 57 years old. Neck pain TECHNIQUE: Standardized fat and water weighted pulse sequences were obtained in the sagittal and axial planes. COMPARISON: 07/30/17 FINDINGS: Normal foramen magnum and brainstem-cervical cord junction. Normal craniovertebral junction. Normal anterior atlantoaxial articulation. Normal odontoid process. There is straightening of the normal cervical lordosis. Normal vertebral bodies and posterior osseous elements. C2-3: Normal endplates. Normal disc height and morphology. Normal central canal and intervertebral neuroforamina. C3-4: Normal endplates. Normal disc height and morphology. Normal central canal and intervertebral neuroforamina. C4-5: Normal endplates. Normal disc height and morphology. Normal central canal and intervertebral neuroforamina. C5-6: Loss of intervertebral disc height. There is endplate spondylosis of the vertebral body. Stable posterior disc protrusion. This is a broad-based disc. Impression upon the anterior thecal sac. Moderate spinal stenosis. Bilateral neural foraminal stenosis. There is bilateral facet arthropathy. There is circumferential disc osteophyte formation. C6-7: Loss of intervertebral disc height. There is endplate spondylosis of the vertebral body. Stable posterior left paracentral disc protrusion. Impression upon the anterior thecal sac. Mild spinal stenosis. Bilateral neural foraminal stenosis. There is bilateral facet arthropathy. There is circumferential disc osteophyte formation. C7-T1: Normal endplates. Normal disc height and morphology. Normal central canal and intervertebral neuroforamina. Normal visualized soft tissue structures. MRI/Spine Cervical (Routine) IMPRESSION: (NOT LISTED IN ORDER OF SIGNIFICANCE) There is altered curvature of the normal cervical lordosis. This can suggest neck strain. Multilevel degenerative changes, as described above. C5-6 and C6-7 with posterior disc protrusions and spinal canal narrowing as detailed above is stable. Electronically Signed: Avery Hoyt MD at 20:24 EDT ,
== END | disposition home or self-care (01) ==
LOC: MRI 15:36
PROVIDERS: PCP Family Medicine; Referring Provider Nurse Practitioner Acute Care; Visit Provider Nurse Practitioner Acute Care
DX: M54.2 Cervicalgia (principal); M54.12 Radiculopathy, cervical region; M47.812 Spondylosis without myelopathy or radiculopathy, cervical region
CPT/HCPCS: 72141

== ENCOUNTER 2023-10-17 10:00 | Outpatient (RCR) | payer OTHER, SELFPAY ==
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
--- NOTE | 2023-10-17 11:32 | HP.PTDCSUM ---
Discharge Summary D/C summary: It has been my pleasure to treat LAURA ROMERO referred by MARTIN BAIG, with the diagnosis of S/P CERVICAL FUSION C5-C7 07/25/23 for a total of 7 visit(s). Discharge Date: 10/17/23 Please see the following information for a summary of their discharge status. Subjective Subjective: SURGICAL FOLLOW UP 10/02/23 - RELEASED TO GO BACK TO WORK 10/21/23 AND FOLLOW UP IN 6 MONTHS. DOING HEP AND HOPING TO BE RELEASED FROM PT TOO. SURGEON ORDERED A BONE STIMULATOR BUT INSURANCE DENIED IT. PATIENT IS ACTUALLY HAVING BONE STIMULATION THROUGH CERTIFIED [employer] REP. PATIENT REPORTS SHE IS BACK TO DOING WHAT SHE NEEDS AND WANTS TO BE ABLE TO DO. Pain Cervical: Pain Intensity (Out of 10): 1 Overall Improvement % Improvement: 90 Objective Objective/Function: PATIENT WAS SEEN TODAY FOR RE-ASSESSMENT OF PROGRESS TOWARD THE SET PT GOALS AND THE NEED FOR FURTHER PHYSICAL THERAPY VS READINESS FOR DISCHARGE. THIS PATIENT HAS DONE WELL WITH PT AND IS MUCH STRONGER NOW. SHE IS INDEP WITH A HEP AND WOULD LIKE TO BE DISCHARGED. THIS PT IS AGREEABLE. UPON EXAM TODAY: ROM deficit: R SHLD ELEVATION TO 141 DEG AND L TO 143 DEG WITH ERP. 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 STRENGTH: MMT'ING - NATHALIE UE'S GROSSLY 5/5 Cervical Mvmt Loss: Flex: MOD Pro: NIL Ext: KANDI Ret: MOD RSB: MOD LSB: MOD R Rot: MOD L Rot: MOD PATIENT DENIES INCREASED PAIN WITH CERVICAL ROM TESTING ALL PLANES. POSTURAL STRENGTH: GOOD Goals Goal 1:: PATIENT WILL REPORT DECREASED NECK PAIN BY AT LEAST 50% TO EASE ADL'S. Goal Progress: Goal Met Goal 2:: PATIENT WILL HAVE INCREASED NATHALIE SHLD ELEVATION BY AT LEAST 20 DEG EA TO IMPROVE ADL'S. Goal Progress: Progressing Goal 3:: PATIENT WILL HAVE INCREASED NATHALIE UE STRENGTH BY AT LEAST 1/2 MUSCLE GRADE OF AFFECTED MUSCULATURE TO IMPROVE ADL'S. Goal Progress: Goal Met Goal 4:: PATIENT WILL HAVE INCRASED PAINFREE CERVICAL ROM ALL PLANES TO EASE ADL'S. Goal Progress: Goal Met Goal 5:: INDEP HEP Goal Progress: Goal Met Plan Plan: D/C D/C Information d/c sentence: If there are questions or concerns regarding this patient's physical therapy, please feel free to call me at [phone]. Thank you for the referral of this patient. Sincerely, Ellie Mas, PT, Cert MDT Balance/Gait/Functional tests Balance/Special Test Scores Oswestry Neck Score: 6 Improvement % Improvement: 90
== END 2023-10-17 17:48 | disposition home or self-care (01) ==
LOC: PT 10:00
PROVIDERS: PCP Family Medicine
DX: Z98.1 Arthrodesis status (principal); M48.02 Spinal stenosis, cervical region
CPT/HCPCS: 97110; 97162; 97164

== ENCOUNTER → 2024-04-09 | Outpatient (CLI) | payer OTHER, SELFPAY ==
--- NOTE | 2024-04-09 15:44 | BI_ITS ---
MAMMOGRAPHY - BILATERAL SCREENING REASON FOR EXAM: Female, 58 years old. Routine annual screening examination. PERTINENT HISTORY: Non-contributory. One-week history of right axillary lump. TECHNIQUE: Digital bilateral breast amy (3D mammographic acquisition) in the CC and MLO projections. 2-D mediolateral oblique (MLO) and craniocaudad (CC) views of both breasts were obtained. CAD: Full Field Digital Mammography with Computer Added Detection was performed. COMPARISON: Comparison is made with prior study of October 10, 2015 and September 02, 2014. FINDINGS: Breast Composition: The breasts are heterogeneously dense, which may obscure small masses. There are no dominant masses or suspicious calcifications. Stable small benign-appearing bilateral axillary lymph nodes. No other significant abnormalities are identified. There has been no significant change since the prior study. BI/SCRN MAMM (CAD)W/AMY BILAT IMPRESSION: Stable bilateral screening mammogram. With the patient''s history of a palpable lump in the right axilla, correlation with ultrasound recommended. ASSESSMENT CATEGORY: BIRADS Category 0: Incomplete. Need additional imaging evaluation. A letter regarding these results will be sent to the patient by the facility within 30 days. Approximately 10% of breast cancers are not detected by mammography. A normal mammogram should not delay biopsy of a clinically suspicious abnormality. [id number] Electronically Signed: Ramez Phan MD at 8:37 EDT ,
== END | disposition home or self-care (01) ==
LOC: OPBI 15:41
PROVIDERS: PCP Family Medicine; Referring Provider Family Medicine; Visit Provider Family Medicine
DX: Z12.31 Encounter for screening mammogram for malignant neoplasm of breast (principal)
CPT/HCPCS: 77063; 77067

== ENCOUNTER → 2024-04-14 | Outpatient (CLI) | payer OTHER, SELFPAY ==
--- NOTE | 2024-04-14 08:06 | US_ITS ---
STUDY: ULTRASOUND BREAST - RIGHT REASON FOR EXAM: Female, 58 years old. Right axillary fullness. TECHNIQUE: Axial and longitudinal images of the RIGHT breast were performed with a high resolution ultrasound transducer. # OF IMAGES: 10 COMPARISON: Comparison is made with prior mammogram dated April 09, 2024. FINDINGS: RIGHT Breast: The right axilla was examined with ultrasound. The palpable lump corresponds to a 4.9 mm x 7.6 mm heterogeneous hypoechoic nodule within the subcutaneous tissues. A tract is seen exiting the overlying skin. This most likely represents an infected sebaceous cyst. US/Breast Limited Unilateral IMPRESSION: Findings suggestive of an infectious sebaceous cyst corresponding to the palpable lump. ASSESSMENT CATEGORY: BIRADS Category 2: Benign. A letter regarding these results will be sent to the patient by the facility within 30 days. Electronically Signed: Ramez Phan MD at 14:53 EDT ,
== END | disposition home or self-care (01) ==
LOC: OPUS 08:04
PROVIDERS: PCP Family Medicine; Referring Provider Family Medicine; Visit Provider Family Medicine
DX: N60.81 Other benign mammary dysplasias of right breast (principal)
CPT/HCPCS: 76642

== ENCOUNTER → 2024-08-18 | Outpatient (CLI) | payer OTHER, SELFPAY ==
[2024-08-18 13:06] LABS: Absolute Lymphocyte Count 1.98 X10^3/uL (0.83-4.51); Absolute Neutrophil Count 6.7 X10^3/uL (2.0-7.7); Basophil# 0.04 X10^3/uL; Basophil% 0.4 % (0-1); Eosinophil# 0.26 X10^3/uL; Eosinophils% 2.7 % (0-5); Hematocrit 43.7 % (37-47); Hemoglobin 14.1 g/dL (12.0-15.0); Lymphocyte # 1.98 X10^3/ul (0.83-4.51); Lymphocyte % 20.4 % (19-41); Mean Corp Hgb Conc 32.3 g/dL (32-36); Mean Corpuscular Hgb 28.5 pg (27.0-32.0); Mean Corpuscular Volume 88.3 fL (81-99); Mean Platelet Vol. 9.7 fl (6.2-12.0); Monocyte# 0.66 X10^3/uL; Monocyte% 6.8 % (0-10); NRBC Flagged by Analyzer 0 % (0-5); Neutrophil % 69.2 % (47-70); Platelet Count 328 K/mm3 (150-450); RBC Distribution Width CV 13.2 % (11.6-14.6); RBC Distribution Width SD 42.3 fl (35.1-43.9); Red Blood Count 4.95 M/mm3 (4.2-5.4); White Blood Count 9.7 K/mm3 (4.4-11.0)
[2024-08-18 19:27] LABS: AST(SGOT) 16 U/L (<=31); Alanine Aminotransfer ALT/SGPT 12 U/L (<=34); Albumin, Serum 4.3 g/dL (3.5-5.0); Alkaline Phosphatase 83 U/L (35-104); Anion Gap 13 (5-15); BUN 22 mg/dL (4-19); BUN/Creat Ratio 40.1 RATIO (10-20); Calcium 9.9 mg/dL (7.6-11.0); Carbon Dioxide 21.9 mmol/L (22.0-29.0); Chloride 104 mmol/L (96-108); Creatinine, Serum 0.6 mg/dL (0.6-1.0); EST Glomerular Filtration Rate 106 (>60); Free T3 2.5 pg/mL (2.18-3.98); Globulin 4.1 g/dL (2.2-4.2); Glucose 125 mg/dL (70-99); Potassium 4.4 mmol/L (3.3-5.1); Protein, Total 8.4 g/dL (5.9-8.4); Sodium Level 139 mmol/L (133-145); Thyroid Stim Hormone (TSH) 0.507 uIU/mL (0.300-4.200); Total Bilirubin 0.26 mg/dL (0.00-1.30)
[2024-08-18 23:27] LABS: Cholesterol 177 mg/dL (<=200); High Density Lipoprotein 45 mg/dL; Triglycerides 178 mg/dL; Very Low Density Lipoprotein 36 mg/dL (5-40)
[2024-08-19 13:13] LABS: Microalbumin,Random Urine < 12.0 mg/L (NO RANGE EST.)
== END | disposition home or self-care (01) ==
LOC: BFHLAB 08:41
PROVIDERS: PCP Family Medicine; Visit Provider Family Medicine
DX: E03.9 Hypothyroidism, unspecified (principal); E11.65 Type 2 diabetes mellitus with hyperglycemia; I10 Essential (primary) hypertension; Z51.81 Encounter for therapeutic drug level monitoring
CPT/HCPCS: 36415; 80053; 80061; 82043; 82570; 84439; 84443; 84481; 85025